=== PATIENT | female | born 1960 | race Caucasian/White ===

== ENCOUNTER 2016-11-03 18:17 | Inpatient (IN) ==
--- NOTE | 2016-11-03 18:32 | Emergency Department Note ---
Disposition Clinical Impression: Suicidal ideation, Acute anxiety, Depression, Marijuana abuse Disposition: Admitted As Inpatient Referrals: NO,PCP [Primary Care Provider] - General Adult HPI - General Chief complaint: ED Psychiatric Symptoms Stated complaint: SI Time Seen by Provider: 11/03/16 18:22 - History of Present Illness HPI Narrative: 55-year-old female history of anxiety depression reports emergency department complaining of a panic attack and feeling suicidal. She started having anxiety symptoms yesterday. The patient states she was recently told that she had an abnormal Alzheimer's type test and a final result has not been given to her. She also reports her primary care provider discontinued her normal benzodiazapine regimen. The patient states she has had suicidal thoughts. She has not harmed herself in any way. There is no history of intentional overdose. The patient has chronic COPD and shortness of breath with no new changes. There is no history of leg swelling or pain or syncope or coughing up blood no chest pain reported. No abdominal pain. There is no history of acute back pain or bowel or bladder dysfunction. No weakness or numbness in arms or legs no trouble walking talking hearing seeing or speaking. There is no history of cough or fever. There is no history of suicidality. - Related Data Previous Rx's Medication Instructions Recorded HydrOXYzine 50 mg PO BID 7 Days 06/04/15 Allergies Allergy/AdvReac Type Severity Reaction Status Date / Time chlordiazepoxide Allergy See Verified 11/03/16 20:06 [From Librium] Comments Penicillins AdvReac Nausea Verified 11/03/16 20:06 All systems ED: reviewed and negative except as stated. Past Medical History - Past Medical History Medical history: Reports: migraine Psychiatric history: Reports: anxiety, depression LABEL FOLDER history: Reports: no LABEL FOLDER history - Social History Smoking Status: Current every day smoker Smokeless Tobacco Status: No Alcohol use: Reports: none Drug use: Reports: marijuana Physical Exam - General Limitations: no limitations General appearance: alert, in no apparent distress - Head Head exam: atraumatic, normocephalic, normal inspection - Eye Eye exam: Present: normal appearance, PERRL, EOMI. Absent: scleral icterus, conjunctival injection, miosis, mydriasis - ENT ENT exam: normal exam, normal oropharynx, mucous membranes moist - Neck Neck exam: Present: normal inspection, full ROM, trachea midline. Absent: tenderness - Chest Chest inspection: Present: symmetric chest wall rise. Absent: tenderness - Respiratory Respiratory exam: Present: normal lung sounds bilaterally. Absent: respiratory distress, wheezes, accessory muscle use, prolonged expiratory phase - Cardiovascular Cardiovascular exam: Present: regular rate, normal rhythm, normal heart sounds - Abdominal Exam Abdominal exam: Present: soft, Non-Tender, normal bowel sounds. Absent: tenderness, distention, guarding, rebound, rigidity - Extremities Exam Extremities exam: Present: normal inspection, full ROM, normal capillary refill. Absent: tenderness, pedal edema, joint swelling, calf tenderness - Expanded Lower Extremity Exam Lower leg exam: Absent: Homans' sign Neurovascular/Tendon exam: Present: normal capillary refill. Absent: motor deficit, sensory deficit, tendon deficit, extremity cold to touch, pallor - Back Exam Back exam: Present: normal inspection, full ROM. Absent: tenderness, CVA tenderness (R), CVA tenderness (L), vertebral tenderness - Neurological Exam Neurological exam: Present: alert, oriented X3, CN II-XII intact. Absent: motor sensory deficit - Psychiatric Psychiatric exam: Present: normal affect, normal mood - Skin Skin exam: Present: warm, dry, intact, normal color. Absent: rash, cyanosis, diaphoresis, erythema, pallor, mottled Course Vital Signs Temperature 98.5 F 11/03/16 18:23 Pulse Rate 93 11/03/16 18:23 Respiratory Rate 18 11/03/16 18:23 Blood Pressure 127/87 11/03/16 18:23 O2 Sat by Pulse Oximetry 93 11/03/16 18:23 Temperature 98.5 F 11/03/16 18:23 Pulse Rate 93 11/03/16 18:31 Respiratory Rate 18 11/03/16 18:31 Blood Pressure 127/87 11/03/16 18:31 O2 Sat by Pulse Oximetry 95 11/03/16 18:31 Oxygen Delivery Oxygen Delivery Room Air Medical Decision Making - [facility] Narrative Medical decision making narrative: The patient describes a panic attack and anxiety with associated suicidal ideation. She appears to be medically stable. Her potassium is slightly low. Potassium supplements have an ordered by mouth. She was very anxious in the ED and was given Ativan. We have consulted the psychiatric service for evaluation. Psychiatry recommends admission, the patient has been suicidal, her family members are here including her and daughter, she has been actively talking about killing herself with them. They are highly concerned and have expressed their worries to the counselor. I feel the patient is at high risk for harming herself based on her history of psychiatric disease and recurrent statements regarding harming herself. The patient has been somewhat agitated in the ED she was given Ativan but remained agitated. Geodon was ordered. - Lab Data Lab results reviewed: Yes I reviewed the patient's lab results. Result diagrams: 11/03/16 18:57 11/03/16 18:57 Lab Results 11/03/16 11/03/16 11/03/16 Range/Units 18:57 18:57 19:33 WBC 10.3 (4.3-11.1) K/mcL RBC 4.86 (3.82-4.97) M/mcL Hgb 15.0 (11.5-15.4) g/dL Hct 44.9 (35.3-44.9) % MCV 92.4 (83.0-100.0) fL MCH 30.9 (28.0-33.3) pg MCHC 33.4 (31.6-35.5) g/dL RDW 12.8 (11.5-14.5) % Plt Count 296 (140-400) K/mcL MPV 11.4 (9.4-12.4) fL Immature Gran % 0.3 (0-4) % Seg Neutrophils % 53.9 % Lymphocytes % 32.1 % Monocytes % 10.0 % Eosinophils % 3.0 % Basophils % 0.7 % Neutrophils # 5.6 (1.6-8.9) K/mcL Lymphocytes # 3.3 (0.6-4.6) K/mcL Monocytes # 1.0 (0.0-1.3) K/mcL Eosinophils # 0.3 (0.0-0.6) K/mcL Basophils # 0.1 (0.0-0.2) K/mcL Immature Plt Fraction 8.9 H (1.1-6.1) % Sodium 138 (136-145) mEq/L Potassium 3.0 L (3.5-4.5) mEq/L Chloride 101 (98-109) mEq/L Carbon Dioxide 26 (19-29) mEq/L BUN 9 (7-20) mg/dL Creatinine 0.83 (0.57-1.11) mg/dL Est GFR ( Amer) > 60 (> 60) Est GFR (Non-Af Amer) > 60 (> 60) BUN/Creatinine Ratio 11 (6-26) Glucose 90 (70-99) mg/dL Calculated Osmolality 284 (280-300) Calcium 9.8 (8.6-10.8) mg/dL Urine Color Yellow (Yellow) Urine Clarity Cloudy A (Clear) Urine pH 5.5 (5.0-8.0) pH Units Ur Specific [place] 1.024 (1.010-1.025) Urine Protein Trace (Neg-Trace) mg/dL Urine Glucose (UA) Normal (Normal) mg/dL Urine Ketones Negative (Negative) mg/dL Urine Blood Negative (Negative) Urine Nitrite Negative (Negative) Urine Bilirubin Negative (Negative) Urine Urobilinogen Normal (Normal) mg/dL Ur Leukocyte Esterase Negative (Negative) Urine Microscopic RBC 0-3 (0-3) per hpf Urine Microscopic WBC 3-5 H (0-3) per hpf Ur Squamous Epith Cells Many H (None-Few) per lpf Urine Bacteria None Seen (None-Few) per hpf Hyaline Casts None Seen (None-Few) per lpf Salicylates < 5.0 L (15-30) mg/dL Urine Opiates Screen (Dbjjgv=277) ng/mL Acetaminophen 1.0 L (10-30) mcg/mL Ur Barbiturates Screen (Btodcm=609) ng/mL Ur Phencyclidine Scrn (Cutoff=25) ng/mL Ur Amphetamines Screen (Wxegle=3637) ng/mL U Benzodiazepines Scrn (Qkskeh=161) ng/mL Urine Cocaine Screen (Cutoff= 300) ng/mL U Marijuana (THC) Screen (Cutoff = 50) ng/mL Ethyl Alcohol < 10 (0-10) mg/dL 11/03/16 Range/Units 19:33 WBC (4.3-11.1) K/mcL RBC (3.82-4.97) M/mcL Hgb (11.5-15.4) g/dL Hct (35.3-44.9) % MCV (83.0-100.0) fL MCH (28.0-33.3) pg MCHC (31.6-35.5) g/dL RDW (11.5-14.5) % Plt Count (140-400) K/mcL MPV (9.4-12.4) fL Immature Gran % (0-4) % Seg Neutrophils % % Lymphocytes % % Monocytes % % Eosinophils % % Basophils % % Neutrophils # (1.6-8.9) K/mcL Lymphocytes # (0.6-4.6) K/mcL Monocytes # (0.0-1.3) K/mcL Eosinophils # (0.0-0.6) K/mcL Basophils # (0.0-0.2) K/mcL Immature Plt Fraction (1.1-6.1) % Sodium (136-145) mEq/L Potassium (3.5-4.5) mEq/L Chloride (98-109) mEq/L Carbon Dioxide (19-29) mEq/L BUN (7-20) mg/dL Creatinine (0.57-1.11) mg/dL Est GFR ( Amer) (> 60) Est GFR (Non-Af Amer) (> 60) BUN/Creatinine Ratio (6-26) Glucose (70-99) mg/dL Calculated Osmolality (280-300) Calcium (8.6-10.8) mg/dL Urine Color (Yellow) Urine Clarity (Clear) Urine pH (5.0-8.0) pH Units Ur Specific [place] (1.010-1.025) Urine Protein (Neg-Trace) mg/dL Urine Glucose (UA) (Normal) mg/dL Urine Ketones (Negative) mg/dL Urine Blood (Negative) Urine Nitrite (Negative) Urine Bilirubin (Negative) Urine Urobilinogen (Normal) mg/dL Ur Leukocyte Esterase (Negative) Urine Microscopic RBC (0-3) per hpf Urine Microscopic WBC (0-3) per hpf Ur Squamous Epith Cells (None-Few) per lpf Urine Bacteria (None-Few) per hpf Hyaline Casts (None-Few) per lpf Salicylates (15-30) mg/dL Urine Opiates Screen Positive H (Yiybyh=124) ng/mL Acetaminophen (10-30) mcg/mL Ur Barbiturates Screen Negative (Wdifma=776) ng/mL Ur Phencyclidine Scrn Negative (Cutoff=25) ng/mL Ur Amphetamines Screen Negative (Dpgnsv=9048) ng/mL U Benzodiazepines Scrn Positive H (Ftcuvq=737) ng/mL Urine Cocaine Screen Negative (Cutoff= 300) ng/mL U Marijuana (THC) Screen Positive H (Cutoff = 50) ng/mL Ethyl Alcohol (0-10) mg/dL
[2016-11-03 19:06] LABS: Basophils # 0.1 K/mcL (0.0-0.2); Basophils % 0.7 %; Eosinophils # 0.3 K/mcL (0.0-0.6); Hematocrit 44.9 % (35.3-44.9); Immature Granulocytes % 0.3 % (0-4); Immature Platelets 8.9 % (1.1-6.1); Lymphocytes # 3.3 K/mcL (0.6-4.6); Lymphocytes % 32.1 %; Mean Corpuscular HGB Conc 33.4 g/dL (31.6-35.5); Mean Corpuscular Hemoglobin 30.9 pg (28.0-33.3); Mean Corpuscular Volume 92.4 fL (83.0-100.0); Mean Platelet Volume 11.4 fL (9.4-12.4); Neutrophils # 5.6 K/mcL (1.6-8.9); Platelet Count 296 K/mcL (140-400); Red Blood Count 4.86 M/mcL (3.82-4.97); Red Cell Distribution Width 12.8 % (11.5-14.5); Segmented Neutrophils % 53.9 %
[2016-11-03 19:20] LABS: BUN/Creatinine Ratio 11 (6-26); Blood Urea Nitrogen 9 mg/dL (7-20); Calcium 9.8 mg/dL (8.6-10.8); Carbon Dioxide 26 mEq/L (19-29); Chloride 101 mEq/L (98-109); Glucose 90 mg/dL (70-99); Osmolality,Calculated 284 (280-300); Sodium 138 mEq/L (136-145); eGFR For African Americans > 60 (> 60); eGFR For Non-African Americans > 60 (> 60)
[2016-11-03 19:30] LABS: Ethanol < 10 mg/dL (0-10); Salicylate < 5.0 mg/dL (15-30)
[2016-11-03] MEDS ORDERED: *HR* LORazepam 1 MG TABLET PO ONE ×2 (19:39→20:38)
[2016-11-03 19:43] LABS: Bilirubin,Urine Negative (Negative); Blood,Urine Negative (Negative); Clarity,Urine Cloudy (Clear); Color,Urine Yellow (Yellow); Glucose,Urine (UA) Normal (Normal); Ketones,Urine Negative (Negative); Leukocyte Esterase,Urine Negative (Negative); Nitrite,Urine Negative (Negative); PH,Urine 5.5 pH Units (5.0-8.0); Protein,Urine Trace mg/dL (Neg-Trace); Specific Gravity,Urine 1.024 (1.010-1.025); Urobilinogen,Urine Normal (Normal)
[2016-11-03 19:46] LABS: Bacteria,Urine None Seen per hpf (None-Few); Hyaline Casts,Urine None Seen per lpf (None-Few); RBC,Urine 0-3 per hpf (0-3); Squamous Epithelial Cell,Urine Many per lpf (None-Few)
[2016-11-03 19:49] LABS: Amphetamine Screen,Urine Negative ng/mL (Cutoff=1000); Barbiturate Screen,Urine Negative ng/mL (Cutoff=200); Benzodiazepines Screen,Urine Positive ng/mL (Cutoff=200); Cannabinoid Screen,Urine Positive ng/mL (Cutoff = 50); Cocaine Screen,Urine Negative ng/mL (Cutoff= 300); Opiate Screen,Urine Positive ng/mL (Cutoff=300); Phencyclidine Screen,Urine Negative ng/mL (Cutoff=25)
[2016-11-03] MEDS ORDERED: Ziprasidone 20 MG CAPSULE PO ONE (22:11)
[2016-11-03] MEDS ORDERED: *HR* LORazepam 1 MG TABLET PO PRN (23:54)
[2016-11-03] MEDS ORDERED: Mag Hydrox/Al Hydrox/Simeth 30 ML UDC PO PRN (23:54)
[2016-11-03] MEDS ORDERED: MOM Conc 10 ML UD.LIQ PO PRN (23:54)
[2016-11-03] MEDS ORDERED: Ibuprofen 400 MG TABLET PO PRN (23:54)
[2016-11-03] MEDS ORDERED: *HR* LORazepam 2 MG/ML VIAL IM PRN (23:54)
[2016-11-03] MEDS ORDERED: Haloperidol Lactate 5 MG/ML VIAL IM PRN (23:54)
[2016-11-04] MEDS: hydrOXYzine pamoate 25 MG CAPSULE PO PRN ×2 (00:31→21:41)
[2016-11-04] MEDS: Nicotine 21 MG PATCH.TD24 TD SCH ×3 (00:31→18:46)
[2016-11-04] MEDS: traZODone 50 MG TABLET PO PRN ×2 (00:31→21:41)
--- NOTE | 2016-11-04 11:33 | Psychiatry History & Physical ---
Date of Encounter: 11/04/16 Time of Encounter: 11:28 History of Present Illness Patient Stated Chief Complaint: Suicidal ideation Medicare Admission Attestation: For traditional Medicare patients the provided hospital inpatient services are reasonable and necessary and in the case of services not specified as inpatient -only under 42 CFR 419.22 (n), that they are appropriately provided as inpatient services in accordance 42 CFR 412.3. For Critical Access Hospital the patient may reasonably be expected to be discharged or transferred to a hospital within 96 hours after admission to the Critical Access Hospital. Admitted From: Emergency Dept History of Present Illness: Ms. Clark is a 55 year old female admitted to the emergency department for evaluation of suicidal ideation. Patient stated that she was treated by a nurse practitioner for panic attacks, she was on Paxil and Klonopin and recently she was advised to taper off the Klonopin due to side effects on her memory. Patient has a family history of Alzheimer disease. 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 Patient is a poor historian and there are no records of psychiatric treatment to review at this time. UDS was positive for THC and benzodiazepine. Patient described anxiety attacks or panic attacks that happens about once a week and may last up to 30 minutes at a time. She smokes half a pack of cigarettes a day and consuming large amounts of caffeine for Mountain Dew in addition to using marijuana on and off. Patient was advised that her treatment plan will involve medication changes to address the above and minimize cognitive side effects of medication. Past Med Surg Social Fam HX - Past Medical History Medical history: COPD, migraine, other - Past Psychiatric History Psychiatric history: Reports: no psych history - Past Surgical History Surgical History: orthopedic, other - Social History Smoking Status: Current every day smoker Smokeless Tobacco Status: No Alcohol use: none Drug use: marijuana Medications & Allergies Aclidinium Blodgett [Tudorza Pressair] 1 puff IH BID 11/03/16 [History] Albuterol Sulfate [Albuterol Inhaler] 2 puff IH Q4-6H PRN 11/03/16 [History] Cetirizine HCl [Zyrtec] 10 mg PO DAILY 11/03/16 [History] Gabapentin [Neurontin] 600 mg PO TID 11/03/16 [History] Melatonin 10 mg PO HS 11/03/16 [History] Meloxicam [Meloxicam] 15 mg PO DAILY 11/03/16 [History] Montelukast [Singulair] 10 mg PO DAILY 11/03/16 [History] Ondansetron HCl [Zofran] 4 - 8 mg PO BID PRN 11/03/16 [History] Paroxetine HCl [Paxil] 40 mg PO DAILY 11/03/16 [History] Ranitidine HCl [Zantac] 300 mg PO DAILY 11/03/16 [History] Tizanidine HCl 4 mg PO Q8H 11/03/16 [History] clonazePAM [Klonopin] 0.5 mg PO TID PRN 11/03/16 [History] Allergies chlordiazepoxide [From Librium] Allergy (Verified 11/03/16 20:06) See Comments "body freezes up" Penicillins Adverse Reaction (Verified 11/03/16 20:06) Nausea Review of Systems Psychiatric: Reports: anxiety, suicidal ideation, panic attacks Mental Status Exam Patient orientation: Yes Person, Yes Time, Yes Place, Yes Other (looks much older than stated age) Level of alertness: Alert, Sedated Patient appearance: Appropriate, Unkempt, Disheveled Behavior: cooperative, anxious, guarded, distractible Psychomotor activity: Slowed Eye contact: Minimal Contact Mood description: Depressed, Anxious Affect description: congruent with mood, constricted, dysphoric Speech pattern: Normal rate, Normal rhythm, Normal tone, Limited, Impoverished Speech volume: Normal Thought process: Circumstantial, Tangential, Slowed Thinking Thought content: Yes Suicidal ideation, No Homicidal ideation, No Overt delusions Perceptual disturbances: No Auditory hallucinations, No Visual hallucinations Attention span: Capable of Focused Attention Memory description: Recent Impaired, Remote Impaired Patient reliability: Not Reliable Historian Intelligence estimate: Average Judgment: Limited Insight: Partial Results - Vital Signs Vital signs: Temp Pulse Resp BP Pulse Ox 97.8 F 90 18 118/74 95 11/03/16 23:40 11/03/16 23:40 11/03/16 23:40 11/03/16 23:40 11/03/16 18:31 - Labs Labs: Laboratory Last Values WBC 10.3 K/mcL (4.3-11.1) 11/03/16 18:57 RBC 4.86 M/mcL (3.82-4.97) 11/03/16 18:57 Hgb 15.0 g/dL (11.5-15.4) 11/03/16 18:57 Hct 44.9 % (35.3-44.9) 11/03/16 18:57 MCV 92.4 fL (83.0-100.0) 11/03/16 18:57 MCH 30.9 pg (28.0-33.3) 11/03/16 18:57 MCHC 33.4 g/dL (31.6-35.5) 11/03/16 18:57 RDW 12.8 % (11.5-14.5) 11/03/16 18:57 Plt Count 296 K/mcL (140-400) 11/03/16 18:57 MPV 11.4 fL (9.4-12.4) 11/03/16 18:57 Immature Gran % 0.3 % (0-4) 11/03/16 18:57 Seg Neutrophils % 53.9 % 11/03/16 18:57 Lymphocytes % 32.1 % 11/03/16 18:57 Monocytes % 10.0 % 11/03/16 18:57 Eosinophils % 3.0 % 11/03/16 18:57 Basophils % 0.7 % 11/03/16 18:57 Neutrophils # 5.6 K/mcL (1.6-8.9) 11/03/16 18:57 Lymphocytes # 3.3 K/mcL (0.6-4.6) 11/03/16 18:57 Monocytes # 1.0 K/mcL (0.0-1.3) 11/03/16 18:57 Eosinophils # 0.3 K/mcL (0.0-0.6) 11/03/16 18:57 Basophils # 0.1 K/mcL (0.0-0.2) 11/03/16 18:57 Immature Plt Fraction 8.9 % (1.1-6.1) H 11/03/16 18:57 Sodium 138 mEq/L (136-145) 11/03/16 18:57 Potassium 3.0 mEq/L (3.5-4.5) L 11/03/16 18:57 Chloride 101 mEq/L (98-109) 11/03/16 18:57 Carbon Dioxide 26 mEq/L (19-29) 11/03/16 18:57 BUN 9 mg/dL (7-20) 11/03/16 18:57 Creatinine 0.83 mg/dL (0.57-1.11) 11/03/16 18:57 Est GFR ( Amer) > 60 (> 60) 11/03/16 18:57 Est GFR (Non-Af Amer) > 60 (> 60) 11/03/16 18:57 BUN/Creatinine Ratio 11 (6-26) 11/03/16 18:57 Glucose 90 mg/dL (70-99) 11/03/16 18:57 Calculated Osmolality 284 (280-300) 11/03/16 18:57 Calcium 9.8 mg/dL (8.6-10.8) 11/03/16 18:57 Urine Color Yellow (Yellow) 11/03/16 19:33 Urine Clarity Cloudy (Clear) A 11/03/16 19:33 Urine pH 5.5 pH Units (5.0-8.0) 11/03/16 19:33 Ur Specific [place] 1.024 (1.010-1.025) 11/03/16 19:33 Urine Protein Trace mg/dL (Neg-Trace) 11/03/16 19:33 Urine Glucose (UA) Normal mg/dL (Normal) 11/03/16 19:33 Urine Ketones Negative mg/dL (Negative) 11/03/16 19:33 Urine Blood Negative (Negative) 11/03/16 19:33 Urine Nitrite Negative (Negative) 11/03/16 19:33 Urine Bilirubin Negative (Negative) 11/03/16 19:33 Urine Urobilinogen Normal mg/dL (Normal) 11/03/16 19:33 Ur Leukocyte Esterase Negative (Negative) 11/03/16 19:33 Urine Microscopic RBC 0-3 per hpf (0-3) 11/03/16 19:33 Urine Microscopic WBC 3-5 per hpf (0-3) H 11/03/16 19:33 Ur Squamous Epith Cells Many per lpf (None-Few) H 11/03/16 19:33 Urine Bacteria None Seen per hpf (None-Few) 11/03/16 19:33 Hyaline Casts None Seen per lpf (None-Few) 11/03/16 19:33 Salicylates < 5.0 mg/dL (15-30) L 11/03/16 18:57 Urine Opiates Screen Positive ng/mL (Klalxm=335) H 11/03/16 19:33 Acetaminophen 1.0 mcg/mL (10-30) L 11/03/16 18:57 Ur Barbiturates Screen Negative ng/mL (Uifeyv=092) 11/03/16 19:33 Ur Phencyclidine Scrn Negative ng/mL (Cutoff=25) 11/03/16 19:33 Ur Amphetamines Screen Negative ng/mL (Izpghv=5491) 11/03/16 19:33 U Benzodiazepines Scrn Positive ng/mL (Axnrxy=161) H 11/03/16 19:33 Urine Cocaine Screen Negative ng/mL (Cutoff= 300) 11/03/16 19:33 U Marijuana (THC) Screen Positive ng/mL (Cutoff = 50) H 11/03/16 19:33 Ethyl Alcohol < 10 mg/dL (0-10) 11/03/16 18:57 Assessment and Plan (1) Anxiety disorder, unspecified Current visit: Yes Status: Acute Plan: Admit inpatient for safety and stabilization, Close observation, Suicide Precautions per unit protocol, Encourage participation in unit milieu, Group Therapy, Monitor sleep, Monitor appetite Additional Plan: Will add BuSpar 15 mg twice a day, with cut down Klonopin to 0.5 mg 3 times a day when necessary. Risks, benefits, side effects, alternatives discussed w/pt: Yes Patient agreeable to treatment: Yes Qualifiers: Anxiety disorder type: panic disorder without agoraphobia Qualified Code(s) : F41.0 - Panic disorder [episodic paroxysmal anxiety] without agoraphobia
[2016-11-04] MEDS: clonazePAM 0.5 MG TABLET PO PRN (18:46)
[2016-11-05] MEDS: clonazePAM 0.5 MG TABLET PO PRN ×3 (00:32→21:26)
[2016-11-05] MEDS: Nicotine 21 MG PATCH.TD24 TD SCH (08:34)
--- NOTE | 2016-11-05 15:42 | Psychiatry Progress Note ---
Date of Encounter: 11/05/16 Time of Encounter: 15:15 Subjective Interval history: Patient seen for follow-up. She reports having muscle spasms in her legs from and had this side effect in the past but she did not tell me. Otherwise mortgage is improved she is not anxious and she is socializing with other patients and denies suicidal ideation. Her discharge plans are ongoing. Review of Systems Psychiatric: Reports: anxiety, suicidal ideation, panic attacks Objective: Exam Patient orientation: Yes Person, Yes Time, Yes Place Level of alertness: Alert Patient appearance: Appropriate, Unkempt Behavior: calm, cooperative Psychomotor activity: Normal Eye contact: Maintains Eye Contact Mood description: Euthymic/stable Affect description: congruent with mood, full range Speech pattern: Normal rate, Normal rhythm, Normal tone Speech volume: Normal Thought process: Linear, Goal Oriented Thought content: No Suicidal ideation, No Homicidal ideation, No Overt delusions Perceptual disturbances: No Auditory hallucinations, No Visual hallucinations Judgment: Fair Insight: Partial Results - Vital Signs Vital Signs: Temp Pulse Resp BP Pulse Ox 97.3 F L 78 18 130/85 95 11/05/16 09:00 11/05/16 09:00 11/05/16 09:00 11/05/16 09:00 11/03/16 18:31 Assessment and Plan (1) Anxiety disorder, unspecified Current visit: Yes Status: Acute Plan: Continue hospitalization, Close observation, Suicide Precautions per unit protocol, Encourage participation in unit milieu, Group Therapy, Monitor sleep, Monitor appetite Additional Plan: We discontinue BuSpar due to the side effects. Patient reported muscle spasm in her legs. She had a history of treatment with past. Risks, benefits, side effects, alternatives discussed w/pt: Yes Patient agreeable to treatment: Yes Qualifiers: Anxiety disorder type: panic disorder without agoraphobia Qualified Code(s) : F41.0 - Panic disorder [episodic paroxysmal anxiety] without agoraphobia Consult Discharge Plan - Plan Referrals: Boris Otto [Outside] (The above appointment is with When you come to your first appointment, you will have an orientation to the agency and you will meet with a counselor. Please bring the following with you to your first visit to the clinic: 1) proof of household income (two consecutive pay stubs, social security award letter, bank statement, statement letter from [facility] , child support statement, IRS 1040 or W2 form, or a statement from the person who financially supports you stating they help provide for your basic needs), 2 ) proof of residency (drivers license, a piece of mail showing your address, a statement from person you live with verifying you live at their address), 3) your social security card, 4) photo ID, 5) your insurance card (if you have commercial insurance you must call to obtain a prior authorization number before you arrive to your first appointment) and 6) if you do not have insurance but have applied for Medicaid, please bring verification you have applied. This is the first available appointment. You may contact the office regularly to check for cancellations that may allow you to be seen sooner. ) Ion Randall, PAC [Physician Grain Blender] - 11/16/16 1:00 pm (The above appointment is with Naty Cast, associate of Ion Randall at [facility]. This appointment is to establish you with a primary care provider. Your needs for psychiatric medication and/or Vivitrol will be assessed for and treated as well. Please arrive 15 minutes early to complete paperwork. Please bring your insurance card, photo ID and list of current medications to your first appointment. This is the first available appointment. You may contact the office regularly to check for cancellations that may allow you to be seen sooner. )
[2016-11-05] MEDS ORDERED: Ondansetron ODT 4 MG TAB.RAPDIS PO PRN (18:44)
[2016-11-05] MEDS: tiZANidine 4 MG TABLET PO SCH (19:37)
[2016-11-05] MEDS ORDERED: Melatonin 3 MG TABLET PO SCH (21:00)
[2016-11-05] MEDS: Gabapentin 300 MG CAPSULE PO SCH (21:26)
[2016-11-05] MEDS: traZODone 50 MG TABLET PO PRN (21:26)
[2016-11-05] MEDS: (Aclidinium Bromide [Tudorza Pressair] 1 PUFF) IH SCH (23:51)
[2016-11-06] MEDS: tiZANidine 4 MG TABLET PO SCH ×2 (04:20→11:35)
[2016-11-06] MEDS: Gabapentin 300 MG CAPSULE PO SCH ×2 (08:51→14:48)
[2016-11-06] MEDS: Nicotine 21 MG PATCH.TD24 TD SCH (08:53)
[2016-11-06] MEDS ORDERED: Famotidine 20 MG TABLET PO SCH (09:00)
[2016-11-06] MEDS ORDERED: Loratadine 10 MG TABLET PO SCH (09:00)
[2016-11-06 09:28] VITALS: BP 126/84
[2016-11-06] MEDS: (Aclidinium Bromide [Tudorza Pressair] 1 PUFF) IH SCH (10:19)
--- NOTE | 2016-11-06 14:40 | Discharge Summary ---
Date of Encounter: 11/06/16 Time of Encounter: 14:36 Diagnosis - Discharge Diagnosis (1) Anxiety disorder, unspecified Status: Acute Qualifiers: Anxiety disorder type: panic disorder without agoraphobia Qualified Code(s) : F41.0 - Panic disorder [episodic paroxysmal anxiety] without agoraphobia Medications - Discharge Medications Aclidinium [place] [Tudorza Pressair] 1 puff IH BID 11/03/16 [History] Albuterol Sulfate [Albuterol Inhaler] 2 puff IH Q4-6H PRN 11/03/16 [History] Cetirizine HCl [Zyrtec] 10 mg PO DAILY 11/03/16 [History] Gabapentin [Neurontin] 600 mg PO TID 11/03/16 [History] Melatonin 10 mg PO HS 11/03/16 [History] Meloxicam 15 mg PO DAILY 11/03/16 [History] Montelukast [Singulair] 10 mg PO DAILY 11/03/16 [History] Ondansetron HCl [Zofran] 4 - 8 mg PO BID PRN 11/03/16 [History] Paroxetine HCl [Paxil] 40 mg PO DAILY 11/03/16 [History] Ranitidine HCl [Zantac] 300 mg PO DAILY 11/03/16 [History] Tizanidine HCl 4 mg PO Q8H 11/03/16 [History] clonazePAM [Klonopin] 0.5 mg PO TID PRN 11/03/16 [History] Patient Taking Own Medication 0 each IH BID each 11/06/16 [Rx] Allergies chlordiazepoxide [From Librium] Allergy (Verified 11/03/16 20:06) See Comments "body freezes up" Penicillins Adverse Reaction (Verified 11/03/16 20:06) Nausea Provider Date of admission: 11/03/16 22:37 Primary care physician: PCP NO Discharging clinician: Graham Cooper Assessment and Plan - Patient/Caregiver Discharge Instructions Activity: resume usual activities as tolerated Diet: regular diet - Follow up Plan Follow up with: Boris Otto [Outside] - 11/23/16 8:30 am (The above appointment is with Liya Walters. When you come to your first appointment, you will have an orientation to the agency and you will meet with a counselor. Please bring the following with you to your first visit to the clinic: 1) proof of household income (two consecutive pay stubs, social security award letter, bank statement, statement letter from [facility], child support statement, IRS 1040 or W2 form, or a statement from the person who financially supports you stating they help provide for your basic needs), 2) proof of residency (drivers license , a piece of mail showing your address, a statement from person you live with verifying you live at their address), 3) your social security card, 4) photo ID , 5) your insurance card (if you have commercial insurance you must call to obtain a prior authorization number before you arrive to your first appointment ) and 6) if you do not have insurance but have applied for Medicaid, please bring verification you have applied. This is the first available appointment. You may contact the office regularly to check for cancellations that may allow you to be seen sooner. ) Ion Randall, PAC [Physician Production Consultant] - 11/16/16 1:00 pm (The above appointment is with Naty Cast, associate of Ion Randall at [facility]. This appointment is to establish you with a primary care provider. Your needs for psychiatric medication and/or Vivitrol will be assessed for and treated as well. Please arrive 15 minutes early to complete paperwork. Please bring your insurance card, photo ID and list of current medications to your first appointment. This is the first available appointment. You may contact the office regularly to check for cancellations that may allow you to be seen sooner. ) Functional capacity at discharge: independent ambulation Overall status at discharge: Stable Disposition: Home, Self-Care Hospital Course Hospital course: Ms. Clark is a 55 year old female admitted for depression and suicidal ideation. For details of the admission please see H&P On the units patient was given BuSpar, she experienced side effects and it was discontinued. Klonopin dose was reduced to 0.5 mg as needed 3 times a day. Patient participated in groups and activities. She reported improved sleep and less anxiety. She denied any suicidal ideation or hopelessness. She was educated about her medication and advised on benzodiazepine abuse and custodial side effects and she was receptive to the information. On discharge she was medically stable and her discharge plans were completed by the licensed social worker. - Time Spent with Patient Total time spent providing and/or coordinating discharge services: Greater than 30 minutes Quality - Multiple Antipsychotics Patient discharged on 2 or more antipsychotic medications: No Procedures - Procedures Procedures: Medication Management, Crisis Stabilization, Supportive Therapy, Group Therapy, Psychoeducational Therapy Mental Status Exam - Mental Status Exam Patient orientation: Yes Person, Yes Time, Yes Place Level of alertness: Alert Patient appearance: Appropriate, Well Groomed Behavior: calm, cooperative Psychomotor activity: Normal Eye contact: Maintains Eye Contact Mood description: Euthymic/stable Affect description: congruent with mood, full range Speech pattern: Normal rate, Normal rhythm, Normal tone Speech Volume: Normal Thought process: Linear, Goal Oriented Thought Content: No Suicidal ideation, No Homicidal ideation, No Overt delusions Perceptual Disturbances: No Auditory hallucinations, No Visual hallucinations Judgment: Limited Insight: Partial
== END 2016-11-06 16:10 | disposition home or self-care (01) | DRG 756 ==
LOC: EMEROO 18:17 → 1ANU 22:37
PROVIDERS: ADMIT Psychiatry & Neurology Psychiatry; ATTEND Psychiatry & Neurology Psychiatry

== ENCOUNTER 2017-03-02 13:02 | Observation (INO) ==
[2017-03-02] MEDS ORDERED: Pantoprazole 40 MG VIAL IVP ONE (13:05)
--- NOTE | 2017-03-02 13:10 | Emergency Department Note ---
Disposition Clinical Impression: Duodenitis Nausea & vomiting Qualifiers: Vomiting type: unspecified Vomiting Intractability: unspecified Qualified Code( s): R11.2 - Nausea with vomiting, unspecified GI bleed Qualifiers: GI bleed type/associated pathology: unspecified gastrointestinal hemorrhage type Qualified Code(s): K92.2 - Gastrointestinal hemorrhage, unspecified Disposition: Admitted As Inpatient Condition: Fair Referrals: Naty Cast [Primary Care Provider] - Forms: ED Satisfaction Letter Time of Disposition: 16:09 GI Bleed HPI - General Chief complaint: ED GI Bleed Stated complaint: GI bleed Time Seen by Provider: 03/02/17 13:05 Source: patient, EMS Mode of arrival: EMS Limitations: no limitations Nursing Notes Reviewed: Yes Vital Signs Reviewed: Yes - History of Present Illness HPI Narrative: 56-year-old has had about a week's worth of abdominal pain was seen at the urgent care there concern was that she may be having a vomit with blood in it. They center for follow-up she saw her family doctor today who did a rectal who found blood in her stool and she's had worsening abdominal pain. Pt Subjective Complaint: other (Guaiac positive stool at her doctor's office with abdominal pain) Onset (ago): day(s) (7) Consistency: constant Severity: moderate Improves with: nothing Worsens with: nothing Context: unknown - Related Data Home Medications Medication Instructions Recorded Confirmed Aclidinium [place] [Tudorza 1 puff IH BID 11/03/16 11/03/16 Pressair] Albuterol Sulfate [Albuterol 2 puff IH Q4-6H PRN 11/03/16 11/03/16 Inhaler] Cetirizine HCl [Zyrtec] 10 mg PO DAILY 11/03/16 11/03/16 Gabapentin [Neurontin] 600 mg PO TID 11/03/16 11/03/16 Melatonin 10 mg PO HS 11/03/16 11/03/16 Meloxicam 15 mg PO DAILY 11/03/16 11/03/16 Montelukast [Singulair] 10 mg PO DAILY 11/03/16 11/03/16 Ondansetron HCl [Zofran] 4 - 8 mg PO BID PRN 11/03/16 11/03/16 Paroxetine HCl [Paxil] 40 mg PO DAILY 11/03/16 11/03/16 Ranitidine HCl [Zantac] 300 mg PO DAILY 11/03/16 11/03/16 Tizanidine HCl 4 mg PO Q8H 11/03/16 11/03/16 clonazePAM [Klonopin] 0.5 mg PO TID PRN 11/03/16 11/03/16 Previous Rx's Medication Instructions Recorded Patient Taking Own Medication 0 each IH BID each 11/06/16 Allergies Allergy/AdvReac Type Severity Reaction Status Date / Time chlordiazepoxide Allergy See Verified 11/03/16 20:06 [From Librium] Comments Penicillins AdvReac Nausea Verified 11/03/16 20:06 All systems ED: reviewed and negative except as stated. Constitutional: Denies: fever, chills, weakness, weight change Eyes: Denies: eye pain, eye discharge, vision change ENT ED: Denies: ear pain, throat pain, dental pain, hearing loss, epistaxis, congestion, dysphagia Cardiovascular: Denies: chest pain, palpitations, dyspnea on exertion, edema, syncope Respiratory: Denies: cough, dyspnea, wheezes, hemoptysis, stridor Gastrointestinal: Reports: abdominal pain, nausea, vomiting, diarrhea. Denies: constipation, hematemesis, melena, hematochezia Genitourinary: Denies: dysuria, frequency, hematuria, discharge Musculoskeletal: Denies: back pain, neck pain, arthralgia, myalgia Integumentary: Denies: rash, abrasion, lesions Neurological: Denies: headache, weakness, numbness, paresthesias, confusion, abnormal gait, vertigo Psychiatric: Denies: anxiety, depression, suicidal thoughts, homicidal thoughts , auditory hallucinations, visual hallucinations Endocrine: Denies: fatigue Hematological/Lymphatic: Denies: easy bleeding, easy bruising Allergic/Immunologic: Denies: facial swelling, urticaria Past Medical History - Past Medical History Medical history: Reports: COPD, migraine, other Surgical history: Reports: orthopedic, other Psychiatric history: Reports: no psych history 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: 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: no 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 - Social History Smoking Status: Current every day smoker Smokeless Tobacco Status: No Alcohol use: Reports: none Drug use: Reports: marijuana Physical Exam - General Limitations: no limitations General appearance: alert, in no apparent distress - Head Head exam: atraumatic, normocephalic, normal inspection - Eye Eye exam: Present: normal appearance, PERRL, EOMI - ENT ENT exam: normal exam - Neck Neck exam: Present: normal inspection, full ROM, trachea midline - Chest Chest inspection: Present: normal inspection, symmetric chest wall rise - Respiratory Respiratory exam: Present: normal lung sounds bilaterally - Cardiovascular Cardiovascular exam: Present: regular rate, normal rhythm, normal heart sounds - Abdominal Exam Abdominal exam: Present: soft, tenderness. Absent: guarding, rebound Abdominal tenderness: Present: epigastrium - Extremities Exam Extremities exam: Present: normal inspection, full ROM. Absent: tenderness, pedal edema - Expanded Lower Extremity Exam Gait: observed and normal - Back Exam Back exam: Present: normal inspection, full ROM. Absent: tenderness - Neurological Exam Neurological exam: Present: alert, oriented X3 - Psychiatric Psychiatric exam: Present: normal affect, normal mood - Skin Skin exam: Present: warm, dry, intact, normal color Course - Reevaluation(s) Reevaluation #1: 56-year-old with nausea vomiting not able to keep anything down for several days had some blood in her stool on guaiac. Hemoglobin is stable however white count elevated at 17 CT shows evidence of duodenitis. Time: 16:07 - Consultations Consultation #1: Discussed with Time: 16:13 Vital Signs Temperature 98.2 F 03/02/17 13:03 Pulse Rate 57 03/02/17 13:03 Respiratory Rate 18 03/02/17 13:03 Blood Pressure 152/92 03/02/17 13:03 O2 Sat by Pulse Oximetry 94 03/02/17 13:03 Temperature 98.2 F 03/02/17 13:03 Pulse Rate 57 03/02/17 13:03 Respiratory Rate 18 03/02/17 13:03 Blood Pressure 152/92 03/02/17 13:03 O2 Sat by Pulse Oximetry 94 03/02/17 13:03 Oxygen Delivery Oxygen Delivery Room Air GI Bleed - Lab Data Lab results reviewed: Yes I reviewed the patient's lab results. Result diagrams: 03/02/17 13:20 03/02/17 13:20 Lab Results 03/02/17 03/02/17 03/02/17 Range/Units 13:20 13:20 13:20 WBC 17.0 H (4.3-11.1) K/mcL RBC 4.54 (3.82-4.97) M/mcL Hgb 14.5 (11.5-15.4) g/dL Hct 42.2 (35.3-44.9) % MCV 93.0 (83.0-100.0) fL MCH 31.9 (28.0-33.3) pg MCHC 34.4 (31.6-35.5) g/dL RDW 13.2 (11.5-14.5) % Plt Count 357 (140-400) K/mcL MPV 10.7 (9.4-12.4) fL Immature Gran % 0.5 (0-4) % Seg Neutrophils % 75.3 % Lymphocytes % 13.7 % Monocytes % 7.6 % Eosinophils % 2.6 % Basophils % 0.3 % Neutrophils # 12.8 H (1.6-8.9) K/mcL Lymphocytes # 2.3 (0.6-4.6) K/mcL Monocytes # 1.3 (0.0-1.3) K/mcL Eosinophils # 0.4 (0.0-0.6) K/mcL Basophils # 0.1 (0.0-0.2) K/mcL PT 11.7 (9.4-12.1) Seconds INR 1.1 APTT 30.1 (26.0-36.0) Seconds Sodium 140 (136-145) mEq/L Potassium 3.1 L (3.5-4.5) mEq/L Chloride 99 (98-109) mEq/L Carbon Dioxide 31 H (19-29) mEq/L BUN 7 (7-20) mg/dL Creatinine 0.79 (0.57-1.11) mg/dL Est GFR ( Amer) > 60 (> 60) Est GFR (Non-Af Amer) > 60 (> 60) BUN/Creatinine Ratio 9 (6-26) Glucose 112 H (70-99) mg/dL Calculated Osmolality 289 (280-300) Lactic Acid (0.5-2.2) mmol/L Calcium 9.9 (8.6-10.8) mg/dL Troponin I (0-0.03) ng/mL Blood Type Antibody Screen 03/02/17 03/02/17 03/02/17 Range/Units 13:20 13:20 13:20 WBC (4.3-11.1) K/mcL RBC (3.82-4.97) M/mcL Hgb (11.5-15.4) g/dL Hct (35.3-44.9) % MCV (83.0-100.0) fL MCH (28.0-33.3) pg MCHC (31.6-35.5) g/dL RDW (11.5-14.5) % Plt Count (140-400) K/mcL MPV (9.4-12.4) fL Immature Gran % (0-4) % Seg Neutrophils % % Lymphocytes % % Monocytes % % Eosinophils % % Basophils % % Neutrophils # (1.6-8.9) K/mcL Lymphocytes # (0.6-4.6) K/mcL Monocytes # (0.0-1.3) K/mcL Eosinophils # (0.0-0.6) K/mcL Basophils # (0.0-0.2) K/mcL PT (9.4-12.1) Seconds INR APTT (26.0-36.0) Seconds Sodium (136-145) mEq/L Potassium (3.5-4.5) mEq/L Chloride (98-109) mEq/L Carbon Dioxide (19-29) mEq/L BUN (7-20) mg/dL Creatinine (0.57-1.11) mg/dL Est GFR ( Amer) (> 60) Est GFR (Non-Af Amer) (> 60) BUN/Creatinine Ratio (6-26) Glucose (70-99) mg/dL Calculated Osmolality (280-300) Lactic Acid 1.2 (0.5-2.2) mmol/L Calcium (8.6-10.8) mg/dL Troponin I 0.00 (0-0.03) ng/mL Blood Type B POSITIVE Antibody Screen NEGATIVE - Radiology Data Radiology results reviewed: Yes I reviewed the patient's radiology results. Chest X-Ray 03/02/17 13:05 IMPRESSION: No acute cardiopulmonary disease. D/ / Gagan Mclean MD / Gagan Mclean MD Interpreting Provider: Gagan Mclean MD Abdomen/Pelvis CT 03/02/17 13:49 IMPRESSION: Negative except for haziness of the fat adjacent to the duodenal bulb suggesting duodenitis D/ / Murali Maguire MD / Murali Maguire MD Interpreting Provider: Murali Maguire MD - EKG Data EKG attestation: Yes I reviewed and interpreted this EKG. EKG shows normal: sinus rhythm Rate: bradycardia Rhythm: NSR Interpretation: no acute changes
[2017-03-02 13:50] LABS: Basophils # 0.1 K/mcL (0.0-0.2); Basophils % 0.3 %; Eosinophils # 0.4 K/mcL (0.0-0.6); Eosinophils % 2.6 %; Hematocrit 42.2 % (35.3-44.9); Hemoglobin 14.5 g/dL (11.5-15.4); Immature Granulocytes % 0.5 % (0-4); Lymphocytes # 2.3 K/mcL (0.6-4.6); Lymphocytes % 13.7 %; Mean Corpuscular HGB Conc 34.4 g/dL (31.6-35.5); Mean Corpuscular Hemoglobin 31.9 pg (28.0-33.3); Mean Platelet Volume 10.7 fL (9.4-12.4); Monocytes # 1.3 K/mcL (0.0-1.3); Monocytes % 7.6 %; Neutrophils # 12.8 K/mcL (1.6-8.9); Platelet Count 357 K/mcL (140-400); Red Blood Count 4.54 M/mcL (3.82-4.97); Red Cell Distribution Width 13.2 % (11.5-14.5); Segmented Neutrophils % 75.3 %
[2017-03-02 13:52] LABS: INR 1.1; Prothrombin Time 11.7 Seconds (9.4-12.1)
[2017-03-02 13:54] LABS: Activated Partial Thrombo Time 30.1 Seconds (26.0-36.0)
[2017-03-02 13:58] LABS: BUN/Creatinine Ratio 9 (6-26); Blood Urea Nitrogen 7 mg/dL (7-20); Calcium 9.9 mg/dL (8.6-10.8); Carbon Dioxide 31 mEq/L (19-29); Chloride 99 mEq/L (98-109); Glucose 112 mg/dL (70-99); Osmolality,Calculated 289 (280-300); Potassium 3.1 mEq/L (3.5-4.5); Sodium 140 mEq/L (136-145); eGFR For African Americans > 60 (> 60); eGFR For Non-African Americans > 60 (> 60)
[2017-03-02] MEDS ORDERED: MetroNIDAZOLE 500 MG/100 ML 500 MG/100 ML BAG IVPB ONE (16:09)
[2017-03-02] MEDS ORDERED: Levofloxacin 500 MG/100 ML 500 MG/100 ML BAG IVPB ONE (16:09)
[2017-03-02] MEDS ORDERED: Naloxone 0.4 MG/ML INJ IVP PRN (16:54)
--- NOTE | 2017-03-02 17:27 | Internal Med History&Physical ---
<Janet Couch M - Last Filed: 03/02/17 17:19> Date of Encounter: 03/02/17 Time of Encounter: 17:19 Assessment and Plan (1) Hypokalemia Current visit: Yes Status: Acute potassium of 3.1. Likely secondary to vomiting and diarrhea. 40mEq potassium IVPB ordered. Recheck chemistry daily. (2) Duodenitis Current visit: Yes Status: Acute Patient presents with nausea, vomiting, and epigastric abdominal pain. CT Abd/ pelvis consistent with duodenitis. FOB from PCP's office reportedly positive. Patient started on levaquin and flagyl by ED. Will trend WBC to determine if necessary to continue. GI panel ordered Clear liquid diet Protonix IVP BID Carafate GI consult NPO after midnight in case of possible EGD. (3) Nausea & vomiting Current visit: Yes Status: Acute Patient reports Nausea, vomiting, abdominal pain for 1 week. Likely secondary to duodenitis seen on CT. Clear liquid diet IV fluids 0.9NS at 80mL/hr zofran PRN for nausea Qualifiers: Vomiting type: cyclical vomiting Vomiting Intractability: unspecified Qualified Code(s): G43.A0 - Cyclical vomiting, not intractable (4) GI bleed Current visit: Yes Status: Acute Patient reports nausea, vomiting and abdominal pain x 1 week. FOB reportedly positive at PCP office today. Will check H/H Q8 hours. Protonix IVP BID GI consulted for possible EGD. Qualifiers: GI bleed type/associated pathology: unspecified gastrointestinal hemorrhage type Qualified Code(s): K92.2 - Gastrointestinal hemorrhage, unspecified (5) Marijuana abuse Current visit: Yes Status: Chronic Patient reports she smokes marijuana. Encouraged her to quit. (6) Smoking Current visit: Yes Status: Chronic Patient reportedly smokes 1PPD despite COPD diagnosis. Discussed smoking cessation and encouraged her to quit. Smoking cessation education and nicotine patch ordered. (7) DVT prophylaxis Current visit: Yes Status: Acute sequential compression devices. Pharmacologic prophylaxis contraindicated with possible GI bleed. Internal Medicine - H&P: HPI Chief complaint: nausea, vomiting, abdominal pain Admitted From: Emergency Dept Plans for Post Hospital Care: Home History of present illness: Ms. Calrk is a 56 year old female with COPD and anxiety presents emergency department today with complaints of nausea, vomiting, abdominal pain. Patient reports he symptoms have been going on for a week, she presented to an urgent care and they had her follow-up with her PCP. She went to her PCP today and had positive fecal occult blood and so was sent to the emergency department. Patient denies any gross blood in her stool, but does report nausea, vomiting and diarrhea for the last week. She reports abdominal pain in her epigastric area, worse with vomiting episodes. She denies any lightheadedness, chest pain , palpitations, increased shortness of breath. Evaluation in the ED included a CT of her abdomen and pelvis that was consistent with duodenitis. WBC elevated to 17.0. She was hypokalemic with potassium of 3.1. On exam, patient alert and oriented, in no distress. Lungs are clear bilaterally, heart has regular rate and rhythm. Abdomen is soft with positive bowel sounds, some mild tenderness to epigastric and RUQ. Past Med Surg Social Fam HX - Past Medical History Medical history: COPD, migraine, other Psychiatric history: no psych history - Past Surgical History Surgical History: orthopedic, other - Social History Smoking Status: Current every day smoker Smokeless Tobacco Status: No Alcohol use: none Drug use: marijuana - Family History Mother Living Status: Age at : 89 Cause of : Alzheimers Father Living Status: Still Living Internal Medicine - H&P: Meds Aclidinium Allen [Tudorza Pressair] 1 puff IH BID 11/03/16 [History] Albuterol Sulfate [Albuterol Inhaler] 2 puff IH Q4-6H PRN 11/03/16 [History] Cetirizine HCl [Zyrtec] 10 mg PO DAILY 11/03/16 [History] Meloxicam 15 mg PO DAILY 11/03/16 [History] Montelukast [Singulair] 10 mg PO DAILY 11/03/16 [History] Ondansetron HCl [Zofran] 4 - 8 mg PO BID PRN 11/03/16 [History] Paroxetine HCl [Paxil] 40 mg PO DAILY 11/03/16 [History] Ranitidine HCl [Zantac] 300 mg PO DAILY 11/03/16 [History] Tizanidine HCl 4 mg PO Q8H PRN 11/03/16 [History] clonazePAM [Klonopin] 0.5 mg PO TID PRN 11/03/16 [History] Gabapentin [Neurontin] 800 mg PO TID 03/02/17 [History] HYDROcodone/Acet 5/325 mg [Bozrah 5-325 mg] 1 tab PO BID PRN 03/02/17 [History] metroNIDAZOLE [Flagyl] 500 mg PO BID 03/02/17 [History] 3 Allergy/AdvReac Type Severity Reaction Status Date / Time chlordiazepoxide Allergy See Verified 11/03/16 20:06 [From Librium] Comments Penicillins AdvReac Nausea Verified 11/03/16 20:06 All Systems PM: A 10-system review of systems was performed and is negative for pertinent findings except as documented above in the HPI. - Constitutional Constitutional: anorexia, no chills, no fever(s), no night sweats - EENT Eyes: no change in vision, no discharge, no pain, no photophobia Ears: no ear discharge, no ear pain, no tinnitus Nose, mouth and throat: no dysphagia, no nasal discharge, no neck pain, no sore throat - Cardiovascular Cardiovascular ROS IM: no chest pain, no diaphoresis, no dyspnea, no lightheadedness, no palpitations, no syncope - Respiratory Respiratory: no cough, no dyspnea, no wheezing, no excessive phlegm production - Gastrointestinal Gastrointestinal: abdominal pain, melena, nausea, vomiting, no diarrhea, no hematemesis, no hematochezia - Genitourinary Genitourinary: no change in urinary stream, no dysuria, no flank pain, no hematuria - Musculoskeletal Musculoskeletal ROS IM: no numbness, no tingling - Integumentary Integumentary IM: no rash, no unusual bruising - Neurological Neurological ROS: no confusion, no convulsions, no focal weakness, no numbness, no tingling, no tremor(s) - Hematologic/Lymphatic Hematologic/Lymphatic: no easy bruising - Constitutional Vitals: Temp Pulse Resp BP Pulse Ox 0 F L 57 18 138/84 94 03/02/17 17:16 03/02/17 13:03 03/02/17 17:16 03/02/17 17:16 03/02/17 13:03 General appearance: Present: A&O X 3, pleasant, no acute distress - Head Head exam: Present: atraumatic, normocephalic - Eye Eye exam: Present: PERRL, conjuntiva pink, sclera anicteric Pupils: Present: PERRL - Neck Neck exam general surgery: Present: supple, trachea midline. Absent: lymphadenopathy - Respiratory Respiratory exam: Present: CTAB. Absent: accessory muscle use, rales, rhonchi, wheezes - Cardiovascular Cardiovascular exam: Present: RRR, +S1, +S2. Absent: diastolic murmur, gallop, rubs, systolic murmur - GI/Abdominal GI/Abdominal exam: Present: normal bowel sounds, soft, tenderness, no peritoneal signs. Absent: distended - Extremities Exam Extremities exam: Present: warm, radial pulses palpable and symmetrical. Absent : calf tenderness, cyanotic, pedal edema - Neurological Exam Neurological exam: Present: CN II-XII intact, oriented X3, no focal deficits. Absent: pronater drift, facial droop, speech deficit - Skin Skin exam: Present: dry, intact Internal Med - H&P Results - Labs CBC & Chem 7: 03/02/17 13:20 03/02/17 13:20 Labs: All Lab Results (24 Hours) 03/02/17 03/02/17 03/02/17 Range/Units 13:20 13:20 13:20 WBC 17.0 H (4.3-11.1) K/mcL RBC 4.54 (3.82-4.97) M/mcL Hgb 14.5 (11.5-15.4) g/dL Hct 42.2 (35.3-44.9) % MCV 93.0 (83.0-100.0) fL MCH 31.9 (28.0-33.3) pg MCHC 34.4 (31.6-35.5) g/dL RDW 13.2 (11.5-14.5) % Plt Count 357 (140-400) K/mcL MPV 10.7 (9.4-12.4) fL Immature Gran % 0.5 (0-4) % Seg Neutrophils % 75.3 % Lymphocytes % 13.7 % Monocytes % 7.6 % Eosinophils % 2.6 % Basophils % 0.3 % Neutrophils # 12.8 H (1.6-8.9) K/mcL Lymphocytes # 2.3 (0.6-4.6) K/mcL Monocytes # 1.3 (0.0-1.3) K/mcL Eosinophils # 0.4 (0.0-0.6) K/mcL Basophils # 0.1 (0.0-0.2) K/mcL PT 11.7 (9.4-12.1) Seconds INR 1.1 APTT 30.1 (26.0-36.0) Seconds Sodium 140 (136-145) mEq/L Potassium 3.1 L (3.5-4.5) mEq/L Chloride 99 (98-109) mEq/L Carbon Dioxide 31 H (19-29) mEq/L BUN 7 (7-20) mg/dL Creatinine 0.79 (0.57-1.11) mg/dL Est GFR ( Amer) > 60 (> 60) Est GFR (Non-Af Amer) > 60 (> 60) BUN/Creatinine Ratio 9 (6-26) Glucose 112 H (70-99) mg/dL Calculated Osmolality 289 (280-300) Lactic Acid (0.5-2.2) mmol/L Calcium 9.9 (8.6-10.8) mg/dL Troponin I (0-0.03) ng/mL Blood Type Antibody Screen 03/02/17 03/02/17 03/02/17 Range/Units 13:20 13:20 13:20 WBC (4.3-11.1) K/mcL RBC (3.82-4.97) M/mcL Hgb (11.5-15.4) g/dL Hct (35.3-44.9) % MCV (83.0-100.0) fL MCH (28.0-33.3) pg MCHC (31.6-35.5) g/dL RDW (11.5-14.5) % Plt Count (140-400) K/mcL MPV (9.4-12.4) fL Immature Gran % (0-4) % Seg Neutrophils % % Lymphocytes % % Monocytes % % Eosinophils % % Basophils % % Neutrophils # (1.6-8.9) K/mcL Lymphocytes # (0.6-4.6) K/mcL Monocytes # (0.0-1.3) K/mcL Eosinophils # (0.0-0.6) K/mcL Basophils # (0.0-0.2) K/mcL PT (9.4-12.1) Seconds INR APTT (26.0-36.0) Seconds Sodium (136-145) mEq/L Potassium (3.5-4.5) mEq/L Chloride (98-109) mEq/L Carbon Dioxide (19-29) mEq/L BUN (7-20) mg/dL Creatinine (0.57-1.11) mg/dL Est GFR ( Amer) (> 60) Est GFR (Non-Af Amer) (> 60) BUN/Creatinine Ratio (6-26) Glucose (70-99) mg/dL Calculated Osmolality (280-300) Lactic Acid 1.2 (0.5-2.2) mmol/L Calcium (8.6-10.8) mg/dL Troponin I 0.00 (0-0.03) ng/mL Blood Type B POSITIVE Antibody Screen NEGATIVE - Diagnostic Studies CT scan - abdomen Additional comments: Abdomen/Pelvis CT 03/02/17 13:49 IMPRESSION: Negative except for haziness of the fat adjacent to the duodenal bulb suggesting duodenitis D/ / Murali Maguire MD / Murali Maguire MD Interpreting Provider: Murali Maguire MD Chest x-ray Additional comments: Chest X-Ray 03/02/17 13:05 IMPRESSION: No acute cardiopulmonary disease. D/ / Gagan Mclean MD / Gagan Mclean MD Interpreting Provider: Gagan Mclean MD <Kehinde Espinal - Last Filed: 03/02/17 18:02> Date of Encounter: 03/02/17 Internal Medicine - H&P: HPI History of present illness: Ms. Clark is a 56 year old female All Systems PM: A 10-system review of systems was performed and is negative for pertinent findings except as documented above in the HPI. - Constitutional Vitals: Temp Pulse Resp BP Pulse Ox 99.0 F 80 16 128/85 90 03/02/17 17:54 03/02/17 17:54 03/02/17 17:54 03/02/17 17:54 03/02/17 17:54 Internal Med - H&P Results - Labs CBC & Chem 7: 03/02/17 13:20 03/02/17 13:20 - Attending Attestation I have personally performed a face to face evaluation on this patient and I discussed the assessment and plan with the nurse practitioner. I have reviewed and agree with the documented care plan. History and Exam by me shows: Ms. Clark is a 56 year old female with COPD and anxiety presents emergency department today with complaints of nausea, vomiting, abdominal pain. Patient reports he symptoms have been going on for a week, she presented to an urgent care and they had her follow-up with her PCP. She went to her PCP today and had positive fecal occult blood and so was sent to the emergency department. Patient denies any gross blood in her stool, but does report nausea, vomiting and diarrhea for the last week. She reports abdominal pain in her epigastric area, worse with vomiting episodes. She denies any lightheadedness, chest pain , palpitations, increased shortness of breath. Evaluation in the ED included a CT of her abdomen and pelvis that was consistent with duodenitis. Gen: A, A, O x3 Abd: Soft, mild tenderness in epigastric region.. no guarding / rigidity a/p 1. Acute duodenities PPI + Carafate GI consult for possible EGD ..
[2017-03-02] MEDS ORDERED: Potassium Chloride 40 MEQ, Lidocaine 1% 2 ML in D5% in Water 500 ML IVPB ONE (17:29)
[2017-03-02] MEDS: 0.9 % Sodium Chloride 1,000 ML IVC SCH (19:20)
[2017-03-02] MEDS: Nicotine 21 MG PATCH.TD24 TD SCH (19:21)
[2017-03-02 19:49] LABS: Hematocrit 38.5 % (35.3-44.9)
[2017-03-02 19:51] LABS: Hemoglobin 12.9 g/dL (11.5-15.4)
[2017-03-02] MEDS: Pantoprazole 40 MG VIAL IVP SCH (20:54)
[2017-03-02] MEDS: metroNIDAZOLE 500 MG TABLET PO SCH (20:54)
[2017-03-02] MEDS: Gabapentin 400 MG CAPSULE PO SCH (20:54)
[2017-03-02] MEDS: clonazePAM 0.5 MG TABLET PO PRN (23:16)
[2017-03-02] MEDS: Ondansetron 4 MG/2 ML VIAL IVP PRN (23:16)
[2017-03-03 00:46] LABS: Adenovirus F 40/41 PCR Not detected (Not detect); Astrovirus PCR Not detected (Not detect); C.difficile Toxin A/B by PCR Not detected (Not detect); Campylobacter by PCR Not detected (Not detect); Cryptosporidium by PCR Not detected (Not detect); Cyclospora cayetanensis PCR Not detected (Not detect); Entamoeba histolytica PCR Not detected (Not detect); Enteroaggregative E.coli(EAEC) Not detected (Not detect); Enteropathogenic E.coli(EPEC) Not detected (Not detect); Enterotoxigenic E.coli (ETEC) Not detected (Not detect); Giardia lamblia PCR Not detected (Not detect); Norovirus GI/GII PCR Not detected (Not detect); Plesiomonas shigelloides PCR Not detected (Not detect); Rotavirus A PCR Not detected (Not detect); Salmonella PCR Not detected (Not detect); Sapovirus PCR Not detected (Not detect); Shig/EnteroinvasiveE coli EIEC Not detected (Not detect); Shigalike tox-prod E coli STEC Not detected (Not detect); Vibrio PCR Not detected (Not detect); Vibrio cholerae PCR Not detected (Not detect); Yersinia enterocolitica PCR Not detected (Not detect)
[2017-03-03] MEDS: Acetaminophen 325 MG TABLET PO PRN (01:55)
[2017-03-03] MEDS ORDERED: SUMAtriptan 6 MG/0.5 ML SQ ONE (03:47)
[2017-03-03 08:26] LABS: BUN/Creatinine Ratio 8 (6-26); Blood Urea Nitrogen 6 mg/dL (7-20); Calcium 8.9 mg/dL (8.6-10.8); Carbon Dioxide 27 mEq/L (19-29); Chloride 106 mEq/L (98-109); Glucose 103 mg/dL (70-99); Osmolality,Calculated 294 (280-300); Potassium 3.1 mEq/L (3.5-4.5); Sodium 143 mEq/L (136-145); eGFR For African Americans > 60 (> 60); eGFR For Non-African Americans > 60 (> 60)
[2017-03-03 09:16] LABS: Basophils # 0.1 K/mcL (0.0-0.2); Basophils % 0.5 %; Eosinophils # 0.7 K/mcL (0.0-0.6); Hematocrit 37.1 % (35.3-44.9); Hemoglobin 12.4 g/dL (11.5-15.4); Immature Granulocytes % 0.4 % (0-4); Lymphocytes # 2.6 K/mcL (0.6-4.6); Mean Corpuscular HGB Conc 33.4 g/dL (31.6-35.5); Mean Corpuscular Hemoglobin 31.6 pg (28.0-33.3); Mean Corpuscular Volume 94.6 fL (83.0-100.0); Mean Platelet Volume 11.4 fL (9.4-12.4); Monocytes # 0.9 K/mcL (0.0-1.3); Monocytes % 8.1 %; Neutrophils # 7.4 K/mcL (1.6-8.9); Platelet Count 308 K/mcL (140-400); Red Blood Count 3.92 M/mcL (3.82-4.97); Red Cell Distribution Width 13.4 % (11.5-14.5)
[2017-03-03] MEDS: Nicotine 21 MG PATCH.TD24 TD SCH (09:32)
[2017-03-03] MEDS: Gabapentin 400 MG CAPSULE PO SCH ×3 (09:32→20:26)
[2017-03-03] MEDS: Pantoprazole 40 MG VIAL IVP SCH ×2 (09:32→20:26)
[2017-03-03] MEDS: metroNIDAZOLE 500 MG TABLET PO SCH (09:33)
[2017-03-03] MEDS: Sucralfate 1 GM TABLET PO SCH ×2 (09:34→15:44)
[2017-03-03] MEDS: Ondansetron 4 MG/2 ML VIAL IVP PRN ×2 (09:34→21:36)
[2017-03-03] MEDS: clonazePAM 0.5 MG TABLET PO PRN ×3 (10:02→20:26)
--- NOTE | 2017-03-03 11:16 | Internal Med Progress Note ---
Date of Encounter: 03/03/17 Time of Encounter: 12:15 - Assessment and plan (1) GI bleed Current Visit: Yes Status: Acute Assessment and plan: Hgb 12; baseline appears to be 15. Fecal occult stool reportedly positive at PCPs office. Patient reports melena at home. Clear liquids, IV PPI, monitor H&H , transfuse for Hgb less than 7. GI following and planning EGD in am Qualifiers: GI bleed type/associated pathology: unspecified gastrointestinal hemorrhage type Qualified Code(s): K92.2 - Gastrointestinal hemorrhage, unspecified (2) Duodenitis Current Visit: Yes Status: Acute Assessment and plan: presented with ABD pain, nausea, vomiting and loose stool for 7 days prior to admission. ABD CT suggestive of duodenitis. Stool studies negative. Afebrile, WBC tending down. IV levaquin and flagyl given in ED. Will hold on ATB at this time. Cont carafate, IV PPI. GI following (3) Hypokalemia Current Visit: Yes Status: Acute Assessment and plan: K 3.1, in the setting poor PO intake and vomiting. Replaced. Monitor repeat CMPs (4) DVT prophylaxis Current Visit: Yes Status: Acute Assessment and plan: SCDs with possible GI bleed - Subjective Interval history: Seen and examined at bedside, says she feels about the same. Still with abdominal pain and nausea. No emesis today. Feels likle she could tolerate clear liquids. No CP, no SOB - Constitutional Vitals: Temp Pulse Resp BP Pulse Ox 98.4 F 74 16 125/85 90 03/03/17 07:35 03/03/17 07:35 03/03/17 07:35 03/03/17 07:35 03/03/17 07:35 General appearance: Present: A&O X 3, pleasant, no acute distress - Head Head exam: Present: atraumatic, normocephalic - Eye Eye exam: Present: PERRL, conjuntiva pink, sclera anicteric Pupils: Present: PERRL - Neck Neck exam general surgery: Present: supple, trachea midline. Absent: lymphadenopathy - Respiratory Respiratory exam: Present: CTAB. Absent: accessory muscle use, rales, rhonchi, wheezes - Cardiovascular Cardiovascular exam: Present: RRR, +S1, +S2. Absent: diastolic murmur, gallop, rubs, systolic murmur - GI/Abdominal GI/Abdominal exam: Present: normal bowel sounds, soft, tenderness, no peritoneal signs. Absent: distended - Extremities Exam Extremities exam: Present: warm, radial pulses palpable and symmetrical. Absent : calf tenderness, cyanotic, pedal edema - Neurological Exam Neurological exam: Present: CN II-XII intact, oriented X3, no focal deficits. Absent: pronater drift, facial droop, speech deficit - Skin Skin exam: Present: dry, intact Internal Medicine: Result - Labs CBC & Chem 7: 03/03/17 07:07 03/03/17 07:07 Labs: Short CBC 03/02/17 03/03/17 Range/Units 19:38 07:07 WBC 11.7 H (4.3-11.1) K/mcL Hgb 12.9 D 12.4 (11.5-15.4) g/dL Hct 38.5 37.1 (35.3-44.9) % Plt Count 308 (140-400) K/mcL Neutrophils # 7.4 (1.6-8.9) K/mcL BMP 03/03/17 07:07 Sodium 143 Potassium 3.1 L Chloride 106 Carbon Dioxide 27 BUN 6 L Creatinine 0.73 Glucose 103 H Calcium 8.9 - ABG Interpretation ABG results: PT/INR, D-dimer PT 11.7 Seconds (9.4-12.1) 03/02/17 13:20 Consult Discharge Plan - Plan Referrals: Naty Cast [Primary Care Provider] -
--- NOTE | 2017-03-03 12:16 | Gastroenterology Consult Note ---
<Baltazar Quinn - Last Filed: 03/03/17 12:13> Date of Encounter: 03/03/17 Time of Encounter: 11:05 - Time Spent With Patient Total time spent is greater than 50% in coordination of care (as documented) at patient's floor/unit and/or counseling patient: GI History of Present Illness - Data of Consult Patient: new to practice Consult date: 03/03/17 Requesting Physician: Kyra Fink CNP - Consult Narrative Reason for consult: Duodenitis, positive FOBT History of present illness: Ms. Clark is a 56 year old female with PMHx of COPD, migraine, and anxiety who presented to the ED with complaints of nausea, vomiting, abdominal pain, and diarrhea which have been ongoing for the past week. She was seen at an urgent care and they instructed her to follow up with her PCP. Patient was seen at her PCPs office the day of admission and had a positive fecal occult blood test and was sent to the EGD. She denies fever, chills, chest pain, shortness of breath, lightheadedness, melena, hematochezia. She does report some epigastric abdominal pain. CT A/P with haziness of fat adjacent to the duodenal bulb suggestive of duodenitis. Procedures: None NSAIDs: Meloxicam Anticoagulation: None A/P 1. Duodenitis: CT A/P with haziness of fat adjacent to the duodenal bulb suggestive of duodenitis. Plan for EGD tomorrow. Keep NPO at midnight. Continue PPI and Carafate. 2. Nausea & Vomiting: Likely due to duodenitis but chronic marijuana use could be contributing as well. Continue PPI, Carafate. and PRN Zofran. Plan for EGD tomorrow. 3. Fecal occult blood test positive: FOBT positive at PCP office. Continue to monitor stools and CBC. Hgb WNL at this time. Past Med Surg Social Fam HX - Past Medical History Medical history: COPD, migraine, other Psychiatric history: anxiety, depression - Past Surgical History Surgical History: orthopedic, other - Social History Smoking Status: Current every day smoker Packs per day: 0.5 Smokeless Tobacco Status: No Alcohol use: none Drug use: marijuana - Family History Mother Name: Stef Jeronimo Family Member Ethnicity: Non- Living Status: Age at : 89 Cause of : Organs shut down Hx Family Cardiac Disorders: No Hx Family Respiratory Disorders: No Hx Family Cancer: No Hx Family GI Disorders: No Hx Family Genitourinary Disorders: Yes (Kidney disease) Hx Family Endocrine Disorder: No Hx Family Musculoskeletal Disorders: No Hx Family Neuromuscular Disorders: No Hx Family Neurologic Disorders: Yes (Alzheimer's Disease) Hx Family HEENT Disorders: No Hx Family Autoimmune Disorders: No Hx Family Reproductive Disorders: No Hx Family Psychosocial Disorders: No Hx Family Medical Disorders: No Father Name: Tye Jeronimo Age: 94 Family Member Ethnicity: Non- Living Status: Still Living Hx Family Cardiac Disorders: Yes (Aunt heart attack) Hx Family Respiratory Disorders: No Hx Family Cancer: Yes (Uncle inoperable cancer) Hx Family GI Disorders: No Hx Family Genitourinary Disorders: No Hx Family Endocrine Disorder: No Hx Family Musculoskeletal Disorders: No Hx Family Neuromuscular Disorders: Yes (grandma Parkinson's) Hx Family Neurologic Disorders: No Hx Family HEENT Disorders: No Hx Family Autoimmune Disorders: No Hx Family Reproductive Disorders: No Hx Family Psychosocial Disorders: No Hx Family Medical Disorders: No - Gastrointestinal Gastrointestinal: Present: as per HPI - Constitutional Constitutional: as per HPI - EENT Eyes: as per HPI Ears: Present: as per HPI Nose, mouth and throat: Present: as per HPI - Cardiovascular Cardiovascular ROS: Present: as per HPI - Respiratory Respiratory IM: Present: as per HPI - Genitourinary Genitourinary: Absent: change in color, Urinary frequency - Neurological ROS Neurological GI: Present: as per HPI - Hematologic/Lymphatic Hematologic/Lymphatic pediatric: Present: as per HPI - Musculoskeletal Musculoskeletal ROS GI: Present: as per HPI - Integumentary Integumentary GI: Present: as per HPI - Psychiatric ROS Psychiatric GI: Present: as per HPI - Endocrine Endocrine IM: Present: as per HPI - Constitutional Vitals: Temp Pulse Resp BP Pulse Ox 98.9 F 84 18 129/91 95 03/03/17 11:50 03/03/17 11:50 03/03/17 11:50 03/03/17 11:50 03/03/17 11:50 General appearance: Present: cooperative, A&O X 3, no acute distress, answers questions appropriately - Head Head exam: Present: atraumatic, normocephalic - Eye Eye exam: Present: normal appearance, sclera anicteric - ENT ENT exam: Present: mucous membranes dry - Neck Neck exam general surgery: Present: normal inspection, trachea midline - Respiratory Respiratory exam: Present: CTAB. Absent: rales, rhonchi - Cardiovascular Cardiovascular exam: Present: RRR, +S1, +S2 - GI/Abdominal GI/Abdominal exam: Present: soft, tenderness, no peritoneal signs. Absent: distended, firm, guarding - Rectal Rectal exam: Present: deferred - Extremities Exam Extremities exam: Present: warm - Neurological Exam Neurological exam: Present: no focal deficits - Psychiatric Psychiatric exam: Present: normal affect, normal mood - Skin Skin exam: Present: dry, intact, normal color, warm Results - Labs CBC & Chem 7: 03/03/17 07:07 03/03/17 07:07 Labs: Last Result Calcium 8.9 mg/dL (8.6-10.8) 03/03/17 07:07 Troponin I 0.00 ng/mL (0-0.03) 03/02/17 13:20 Stool Occult Blood Negative (Negative) 03/02/17 22:38 Entire Visit Hgb 12.4 g/dL (11.5-15.4) 03/03/17 07:07 Hct 37.1 % (35.3-44.9) 03/03/17 07:07 PT 11.7 Seconds (9.4-12.1) 03/02/17 13:20 - ABG ABG results: PT/INR, D-dimer PT 11.7 Seconds (9.4-12.1) 03/02/17 13:20 Consult Discharge Plan - Plan Referrals: Naty Cast [Primary Care Provider] - <Iván Miller - Last Filed: 03/03/17 19:23> Date of Encounter: 03/03/17 Time of Encounter: 18:30 - Time Spent With Patient Total time spent is greater than 50% in coordination of care (as documented) at patient's floor/unit and/or counseling patient: GI History of Present Illness - Data of Consult Requesting Physician: Kyra Fink CNP - Consult Narrative History of present illness: Ms. Clark is a 56 year old female - Constitutional Vitals: Temp Pulse Resp BP Pulse Ox 98.2 F 94 16 131/86 93 03/03/17 18:54 03/03/17 18:54 03/03/17 18:54 03/03/17 18:54 03/03/17 18:54 Results - Labs CBC & Chem 7: 03/03/17 07:07 03/03/17 07:07 Labs: Last Result Calcium 8.9 mg/dL (8.6-10.8) 03/03/17 07:07 Troponin I 0.00 ng/mL (0-0.03) 03/02/17 13:20 Stool Occult Blood Negative (Negative) 03/02/17 22:38 Entire Visit Hgb 12.4 g/dL (11.5-15.4) 03/03/17 07:07 Hct 37.1 % (35.3-44.9) 03/03/17 07:07 PT 11.7 Seconds (9.4-12.1) 03/02/17 13:20 - ABG ABG results: PT/INR, D-dimer PT 11.7 Seconds (9.4-12.1) 03/02/17 13:20 - Attending Attestation I examined this patient and my medical decision-making was reviewed with the Resident Physician. I agree with the documented findings, disposition and treatment plan as described except to the extent set forth below.
[2017-03-04 05:23] LABS: Hematocrit 37.5 % (35.3-44.9); Hemoglobin 12.3 g/dL (11.5-15.4); Mean Corpuscular HGB Conc 32.8 g/dL (31.6-35.5); Mean Corpuscular Hemoglobin 31.7 pg (28.0-33.3); Mean Corpuscular Volume 96.6 fL (83.0-100.0); Mean Platelet Volume 10.6 fL (9.4-12.4); Platelet Count 269 K/mcL (140-400); Red Blood Count 3.88 M/mcL (3.82-4.97); Red Cell Distribution Width 13.7 % (11.5-14.5)
[2017-03-04] MEDS: 0.9 % Sodium Chloride 1,000 ML IVC SCH ×2 (05:41→20:08)
[2017-03-04 05:44] LABS: Alanine Aminotransferase 15 Units/L (0-55); Albumin 3.1 g/dL (3.5-5.0); Albumin/Globulin Ratio 1.1 (1.1-2.2); Alkaline Phosphatase 60 Units/L (38-126); Aspartate Amino Transferase 11 Units/L (5-34); BUN/Creatinine Ratio 9 (6-26); Bilirubin,Total 0.3 mg/dL (0.2-1.2); Blood Urea Nitrogen 6 mg/dL (7-20); Calcium 8.7 mg/dL (8.6-10.8); Carbon Dioxide 24 mEq/L (19-29); Chloride 109 mEq/L (98-109); Globulin 2.7 g/dL (2.4-3.5); Glucose 105 mg/dL (70-99); Osmolality,Calculated 290 (280-300); Potassium 3.1 mEq/L (3.5-4.5); Sodium 141 mEq/L (136-145); Total Protein 5.8 g/dL (6.0-8.3); eGFR For African Americans > 60 (> 60); eGFR For Non-African Americans > 60 (> 60)
--- NOTE | 2017-03-04 08:08 | Electrocardiograph Report ---
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
[2017-03-04] MEDS ORDERED: SUMAtriptan 6 MG/0.5 ML SQ ONE (09:03)
[2017-03-04] MEDS: Pantoprazole 40 MG VIAL IVP SCH ×2 (09:44→20:07)
[2017-03-04] MEDS: Nicotine 21 MG PATCH.TD24 TD SCH ×2 (09:45→09:53)
[2017-03-04] MEDS: Sucralfate 1 GM TABLET PO SCH ×2 (09:45→17:32)
[2017-03-04] MEDS: Gabapentin 400 MG CAPSULE PO SCH ×3 (09:45→20:06)
[2017-03-04] MEDS: clonazePAM 0.5 MG TABLET PO PRN ×3 (09:54→20:07)
[2017-03-04] MEDS ORDERED: *HR* FentaNYL (PF) 100 MCG/2 ML VIAL ONE (11:44)
[2017-03-04] MEDS ORDERED: *HR* Midazolam HCl 5 MG/5 ML VIAL IVP ONE (11:44)
[2017-03-04] MEDS: Ondansetron 4 MG/2 ML VIAL IVP PRN (11:46)
[2017-03-04] MEDS ORDERED: *HR* HYDROcodone/Acet 5/325 mg TABLET PO ONE (15:07)
--- NOTE | 2017-03-04 15:52 | Internal Med Progress Note ---
Date of Encounter: 03/04/17 Time of Encounter: 15:54 - Assessment and plan (1) Duodenitis Current Visit: Yes Status: Acute Assessment and plan: Ms. Clark is a 56 year old female with PMH COPD, migraine, and anxiety who presented to [facility] on 03/03/2017 with complaints of nausea, vomiting, abdominal pain, and diarrhea for one week. She was seen at an urgent care and was advised to follow up with PCP. Patient was seen at PCPs office the day of presentation and had a positive fecal occult blood test and was sent to ED for further evaluation and treatment. presented with ABD pain, nausea, vomiting and loose stool for 7 days prior to admission. ABD CT suggestive of duodenitis. Stool studies negative. Afebrile, WBC tending down. IV levaquin and flagyl given in ED. Will hold on ATB at this time. Cont carafate, IV PPI. EGD planned 03/04. GI following (2) GI bleed Current Visit: Yes Status: Acute Assessment and plan: Hgb 12; baseline appears to be 15. Fecal occult stool reportedly positive at PCPs office. Patient reports melena at home. Clear liquids, IV PPI, monitor H&H , transfuse for Hgb less than 7. GI following and planning EGD 03/04. Hgb 12.3 on 03/04 Qualifiers: GI bleed type/associated pathology: unspecified gastrointestinal hemorrhage type Qualified Code(s): K92.2 - Gastrointestinal hemorrhage, unspecified (3) Hypokalemia Current Visit: Yes Status: Acute Assessment and plan: K 3.1, in the setting poor PO intake and vomiting. Replaced. Monitor repeat CMPs (4) Acute anxiety Current Visit: No Status: Acute Assessment and plan: per hx. Cont home Paxil and Klonopin (5) DVT prophylaxis Current Visit: Yes Status: Acute Assessment and plan: SCDs with possible GI bleed - Subjective Interval history: Seen and examined at bedside, says she had an uneventful night. She complains of migraine and is requesting home Imitrex. Having some intermittent nausea, no vomiting. Still with intermittent abdominal pain. No CP, no SOB - Constitutional Vitals: Temp Pulse Resp BP Pulse Ox 98.7 F 77 16 128/88 94 03/04/17 15:20 03/04/17 15:20 03/04/17 15:20 03/04/17 15:20 03/04/17 15:20 General appearance: Present: A&O X 3, pleasant, no acute distress - Head Head exam: Present: atraumatic, normocephalic - Eye Eye exam: Present: PERRL, conjuntiva pink, sclera anicteric Pupils: Present: PERRL - Neck Neck exam general surgery: Present: supple, trachea midline. Absent: lymphadenopathy - Respiratory Respiratory exam: Present: CTAB. Absent: accessory muscle use, rales, rhonchi, wheezes - Cardiovascular Cardiovascular exam: Present: RRR, +S1, +S2. Absent: diastolic murmur, gallop, rubs, systolic murmur - GI/Abdominal GI/Abdominal exam: Present: normal bowel sounds, soft, no peritoneal signs. Absent: distended, tenderness - Extremities Exam Extremities exam: Present: warm, radial pulses palpable and symmetrical. Absent : calf tenderness, cyanotic, pedal edema - Neurological Exam Neurological exam: Present: CN II-XII intact, oriented X3, no focal deficits. Absent: pronater drift, facial droop, speech deficit - Skin Skin exam: Present: dry, intact Internal Medicine: Result - Labs CBC & Chem 7: 03/04/17 05:10 03/04/17 05:10 Labs: Short CBC 03/04/17 Range/Units 05:10 WBC 9.9 (4.3-11.1) K/mcL Hgb 12.3 (11.5-15.4) g/dL Hct 37.5 (35.3-44.9) % Plt Count 269 (140-400) K/mcL BMP 03/04/17 05:10 Sodium 141 Potassium 3.1 L Chloride 109 Carbon Dioxide 24 BUN 6 L Creatinine 0.68 Glucose 105 H Calcium 8.7 Liver Function 03/04/17 Range/Units 05:10 Total Bilirubin 0.3 (0.2-1.2) mg/dL AST 11 (5-34) Units/L ALT 15 (0-55) Units/L Alkaline Phosphatase 60 (38-126) Units/L Albumin 3.1 L (3.5-5.0) g/dL - ABG Interpretation ABG results: PT/INR, D-dimer PT 11.7 Seconds (9.4-12.1) 03/02/17 13:20 Consult Discharge Plan - Plan Referrals: Naty Cast [Primary Care Provider] -
[2017-03-04] MEDS ORDERED: Simethicone 40 MG/0.6 ML MLS IR ONE (16:35)
[2017-03-04] MEDS ORDERED: Tetracaine/Benzocaine/Butamben 200MG/SPRAY (100SPY/BOT) MM ONE (16:35)
[2017-03-04] MEDS ORDERED: *HR* Midazolam HCl 5 MG/5 ML VIAL IVP PRN (16:35)
[2017-03-04] MEDS ORDERED: *HR* FentaNYL (PF) 100 MCG/2 ML VIAL IVP PRN (16:35)
--- NOTE | 2017-03-04 16:35 | Pre-Sedation Evaluation ---
Pre-sedation evaluation - Pre-sedation checklist Date of procedure: 03/04/17 Procedure: EGD Recent Vitals: Last Vital Signs Temp 98.7 F 03/04/17 16:12 Pulse 74 03/04/17 16:12 Resp 18 03/04/17 16:12 BP 155/99 03/04/17 16:12 Pulse Ox 95 03/04/17 16:12 H&P (including ROS) documented in medical record: Yes Previous reaction to sedatives/anesthetics: No Dietary Status: NPO after Midnight Dentition: dentures removed ASA Classification *see protocol: CLASS III-Severe systemic disease Plan of Care: Pt appropriate candidate for procedure/moderate/conscious sedation , Risks/benefits of procedure/sedation discussed w/ patient/family
[2017-03-04] MEDS: *HR* HYDROcodone/Acet 5/325 mg TABLET PO PRN (20:47)
[2017-03-05] MEDS: *HR* HYDROcodone/Acet 5/325 mg TABLET PO PRN (03:41)
[2017-03-05] MEDS: 0.9 % Sodium Chloride 1,000 ML IVC SCH ×3 (03:42→07:59)
[2017-03-05 03:47] LABS: Hemoglobin 11.7 g/dL (11.5-15.4); Mean Corpuscular HGB Conc 32.5 g/dL (31.6-35.5); Mean Corpuscular Hemoglobin 31.9 pg (28.0-33.3); Mean Corpuscular Volume 98.1 fL (83.0-100.0); Mean Platelet Volume 11.2 fL (9.4-12.4); Platelet Count 289 K/mcL (140-400); Red Blood Count 3.67 M/mcL (3.82-4.97); Red Cell Distribution Width 13.8 % (11.5-14.5)
[2017-03-05 04:09] LABS: Alanine Aminotransferase 15 Units/L (0-55); Albumin 2.8 g/dL (3.5-5.0); Albumin/Globulin Ratio 1.1 (1.1-2.2); Alkaline Phosphatase 57 Units/L (38-126); Aspartate Amino Transferase 13 Units/L (5-34); BUN/Creatinine Ratio 9 (6-26); Blood Urea Nitrogen 8 mg/dL (7-20); Calcium 8.3 mg/dL (8.6-10.8); Carbon Dioxide 24 mEq/L (19-29); Chloride 111 mEq/L (98-109); Globulin 2.6 g/dL (2.4-3.5); Glucose 108 mg/dL (70-99); Osmolality,Calculated 293 (280-300); Sodium 142 mEq/L (136-145); Total Protein 5.4 g/dL (6.0-8.3); eGFR For African Americans > 60 (> 60); eGFR For Non-African Americans > 60 (> 60)
[2017-03-05 04:15] LABS: Bilirubin,Total < 0.2 mg/dL (0.2-1.2); Potassium 4.4 mEq/L (3.5-4.5)
[2017-03-05] MEDS: Pantoprazole 40 MG VIAL IVP SCH (07:59)
[2017-03-05] MEDS: Sucralfate 1 GM TABLET PO SCH (07:59)
[2017-03-05] MEDS: clonazePAM 0.5 MG TABLET PO PRN (07:59)
[2017-03-05] MEDS: Acetaminophen 325 MG TABLET PO PRN (08:00)
[2017-03-05] MEDS: Gabapentin 400 MG CAPSULE PO SCH ×2 (08:00→14:16)
[2017-03-05] MEDS ORDERED: SUMAtriptan 6 MG/0.5 ML SQ ONE (08:30)
[2017-03-05] MEDS ORDERED: Nicotine 21 MG PATCH.TD24 TD SCH (09:00)
[2017-03-05 11:38] VITALS: BP 144/97
--- NOTE | 2017-03-05 11:45 | Discharge Summary ---
Date of Encounter: 03/05/17 Time of Encounter: 11:33 - Discharge Diagnosis (1) Duodenitis Priority: Primary Status: Acute Comments: Ms. Clark is a 56 year old female with PMH COPD, migraine, and anxiety who presented to [facility] on 03/03/2017 with complaints of nausea, vomiting, abdominal pain, and diarrhea for one week. She was seen at an urgent care and was advised to follow up with PCP. Patient was seen at PCPs office the day of presentation and had a positive fecal occult blood test and was sent to ED for further evaluation and treatment. She was evaluated by GI and underwent an EH+D that showed a non-bleeding ulcer. She was discharged home in stable condition with GI follow-up presented with ABD pain, nausea, vomiting and loose stool for 7 days prior to admission. ABD CT suggestive of duodenitis. Stool studies negative. Repeat occult stool negative. IV levaquin and flagyl given in ED. Held on ATB as she remained Afebrile, no elevated WBC. 03/04/2017 EGD with pyloric ulcer, no evidence of bleeding. Cont carafate, PPI. Can follow-up with GI outpatient (2) Hypokalemia Priority: Primary Status: Acute Comments: K 3.1, in the setting of poor PO intake and emesis prior to admission. Normalized with replacement. Recommend repeat CMP with PCP in 5-7 days. (3) Chronic pain Priority: Primary Status: Acute Comments: patient reports neck and back pain also still with some abdominal discomfort at discharge but improved. She is requesting pain medication at discharge. [place]AR[place] verified 03/05/2017 and patient received 4 day supply [place] 02/28/2017 ( patient presented to [facility] on 03/02, therefore she should have 2 day supply at home). Concerned for malingering with repeated request. Will send home with 1 day [place]. That will be a total of 3 days of medication. Patient advised to follow-up with PCP Qualifiers: Chronic pain type: chronic pain syndrome Qualified Code(s): G89.4 - Chronic pain syndrome (4) Acute anxiety Priority: Primary Status: Acute Comments: per hx. [place]AR[place] verified on 03/05/2017 and patient does have active rx. Cont home regimen at discharge. (5) DVT prophylaxis Priority: Secondary Status: Acute Comments: SCDs - Discharge Medications Prescriptions: HYDROcodone/Acet 5/325 mg [[place] 5-325 mg] 1 tab PO Q6HR PRN #4 tablet PRN Reason: Severe Pain Omeprazole [PriLOSEC] 40 mg PO BIDAC #60 capsule. Sucralfate [Carafate] 1 gm PO 0730,1630 #30 tablet Home Medications: Aclidinium [place]at[place] [Tudorza Pressair] 1 puff IH BID 11/03/16 [History] Albuterol Sulfate [Albuterol Inhaler] 2 puff IH Q4-6H PRN 11/03/16 [History] Cetirizine HCl [Zyrtec] 10 mg PO DAILY 11/03/16 [History] Montelukast [Singulair] 10 mg PO DAILY 11/03/16 [History] Ondansetron HCl [Zofran] 4 - 8 mg PO BID PRN 11/03/16 [History] Paroxetine HCl [Paxil] 40 mg PO DAILY 11/03/16 [History] Tizanidine HCl 4 mg PO Q8H PRN 11/03/16 [History] clonazePAM [Klonopin] 0.5 mg PO TID PRN 11/03/16 [History] Gabapentin [Neurontin] 800 mg PO TID 03/02/17 [History] HYDROcodone/Acet 5/325 mg [[place] 5-325 mg] 1 tab PO BID PRN 03/02/17 [History] HYDROcodone/Acet 5/325 mg [[place] 5-325 mg] 1 tab PO Q6HR PRN #4 tablet 03/05/17 [Rx] Omeprazole [PriLOSEC] 40 mg PO BIDAC #60 capsule. 03/05/17 [Rx] Sucralfate [Carafate] 1 gm PO 0730,1630 #30 tablet 03/05/17 [Rx] Allergies/Adverse Reactions: 3 Allergy/AdvReac Type Severity Reaction Status Date / Time chlordiazepoxide Allergy See Verified 11/03/16 20:06 [From Librium] Comments Penicillins AdvReac Nausea Verified 11/03/16 20:06 Date of admission: 03/02/17 16:25 Primary care physician: Naty Cast Consults: 03/02/17 16:59 Consult to Gastroenterology [CONS] Routine Consulting Provider: Gastroenterology Nikkie Reason for Consult: 56F with duodenitis, positive FOB at her PCP. Call Completed: No Discharging clinician: Kyra Fink Anticipated date of discharge: 03/05/17 - Patient Status Disposition: Home, Self-Care Condition: Good Functional capacity at discharge: independent ambulation Overall status at discharge: patient is back to baseline - Discharge Instructions Follow Up With: Naty Cast [Primary Care Provider] - Iván Miller MD [Partnered Physician] - - Diet and Activity Activity: increase activity as tolerated Diet: advance to your usual diet, other (avoid spicy foods) Interval History: Seen and examined at bedside. She says she feels better but still with some ABD discomfort. Reviewed EGD results with patient. Patient is requesting pain medicine at discharge, advised patient that opiates are not recommended for gastric ulcer treatment. She also reports neck and lower back pain. No nausea, no vomiting, no loose stools. Hospital course: Ms. Clark is a 56 year old female - Time Spent with Patient Total time spent providing and/or coordinating discharge services: Greater than 30 minutes (58 minutes spent on discharge) - Constitutional Vitals: Temp Pulse Resp BP Pulse Ox 98 F 80 14 141/81 94 03/05/17 07:28 03/05/17 07:28 03/05/17 07:28 03/05/17 07:28 03/05/17 07:28 General appearance: Present: A&O X 3, pleasant, no acute distress - Head Head exam: Present: atraumatic, normocephalic - Eye Eye exam: Present: PERRL, conjuntiva pink, sclera anicteric Pupils: Present: PERRL - Neck Neck exam general surgery: Present: supple, trachea midline. Absent: lymphadenopathy - Respiratory Respiratory exam: Present: CTAB. Absent: accessory muscle use, rales, rhonchi, wheezes - Cardiovascular Cardiovascular exam: Present: RRR, +S1, +S2. Absent: diastolic murmur, gallop, rubs, systolic murmur - GI/Abdominal GI/Abdominal exam: Present: normal bowel sounds, soft, no peritoneal signs. Absent: distended, tenderness - Extremities Exam Extremities exam: Present: warm, radial pulses palpable and symmetrical. Absent : calf tenderness, cyanotic, pedal edema - Neurological Exam Neurological exam: Present: CN II-XII intact, oriented X3, no focal deficits. Absent: pronater drift, facial droop, speech deficit - Skin Skin exam: Present: dry, intact
== END 2017-03-05 14:25 | disposition home or self-care (01) ==
LOC: 3BNU 13:02 → EMEROO 13:02 → 3BNU 17:19
PROVIDERS: ADMIT Family Medicine; ATTEND Registered Nurse
PROC: ENDOEBX (2017-03-04 16:00)

== ENCOUNTER 2018-01-24 12:27 | Observation (INO) ==
[2018-01-24] MEDS ORDERED: Ondansetron 4 MG/2 ML VIAL IVP ONE (13:25)
[2018-01-24] MEDS ORDERED: 0.9 % Sodium Chloride 1,000 ML IVC ONE (13:25)
[2018-01-24] MEDS ORDERED: Ipratropium/Albuterol Neb 3 ML IH ONE (13:25)
[2018-01-24 13:35] LABS: Basophils # 0.1 K/mcL (0.0-0.2); Basophils % 0.5 %; Eosinophils # 0.1 K/mcL (0.0-0.6); Eosinophils % 0.6 %; Hematocrit 45.2 % (35.3-44.9); Hemoglobin 15.6 g/dL (11.5-15.4); Immature Granulocytes % 0.4 % (0-4); Lymphocytes # 1.1 K/mcL (0.6-4.6); Lymphocytes % 9.6 %; Mean Corpuscular HGB Conc 34.5 g/dL (31.6-35.5); Mean Corpuscular Hemoglobin 32.7 pg (28.0-33.3); Mean Corpuscular Volume 94.8 fL (83.0-100.0); Mean Platelet Volume 10.9 fL (9.4-12.4); Monocytes # 0.4 K/mcL (0.0-1.3); Monocytes % 3.3 %; Neutrophils # 9.5 K/mcL (1.6-8.9); Platelet Count 299 K/mcL (140-400); Red Blood Count 4.77 M/mcL (3.82-4.97); Red Cell Distribution Width 13.9 % (11.5-14.5); Segmented Neutrophils % 85.6 %
[2018-01-24] MEDS ORDERED: predniSONE 20 MG TABLET PO ONE (13:35)
[2018-01-24 13:40] LABS: Prothrombin Time 11.5 Seconds (9.4-12.1)
--- NOTE | 2018-01-24 13:53 | Emergency Department Note ---
Disposition Clinical Impression: COPD exacerbation Disposition: Admitted As Inpatient Condition: Undetermined General Adult HPI - General Chief complaint: ED Chest Pain Stated complaint: JOSE Time Seen by Provider: 01/24/18 13:03 Source: patient Limitations: no limitations - History of Present Illness Pain Scale: 10 - Related Data Home Medications Medication Instructions Recorded Confirmed Albuterol Sulfate [Albuterol 2 puff IH Q4-6H PRN 11/03/16 01/24/18 Inhaler] Cetirizine HCl [Zyrtec] 10 mg PO DAILY 11/03/16 01/24/18 Paroxetine HCl [Paxil] 40 mg PO DAILY 11/03/16 01/24/18 Tizanidine HCl 4 mg PO Q8H PRN 11/03/16 01/24/18 Amitriptyline [Elavil] 10 mg PO HS 01/24/18 01/24/18 Fluticasone/Vilanterol [Breo 2 puff IH DAILY 01/24/18 01/24/18 Ellipta 100-25 Mcg INH] Meloxicam [Meloxicam] 15 mg PO DAILY 01/24/18 01/24/18 Omeprazole [PriLOSEC] 40 mg PO DAILY 01/24/18 01/24/18 Sucralfate [Carafate] 1 gm PO QID 01/24/18 01/24/18 cloNIDine HCl [CloNIDine HCl] 0.1 mg PO DAILY 01/24/18 01/24/18 raNITIdine HCl [Zantac] 150 mg PO BID 01/24/18 01/24/18 Allergies Allergy/AdvReac Type Severity Reaction Status Date / Time chlordiazepoxide Allergy See Verified 04/10/17 18:32 [From Librium] Comments Penicillins AdvReac Nausea Verified 04/10/17 18:32 Past Medical History - Past Medical History Medical history: Reports: COPD, GERD, migraine, other Surgical history: Reports: orthopedic, other Psychiatric history: Reports: anxiety, depression [employer]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 - Social History Smoking Status: Current every day smoker Smokeless Tobacco Status: No Alcohol use: Reports: none Drug use: Reports: none Physical Exam - General Limitations: no limitations General appearance: alert, in no apparent distress Course Vital Signs Temperature 98.5 F 01/24/18 13:00 Pulse Rate 66 01/24/18 13:00 Respiratory Rate 20 01/24/18 13:00 Blood Pressure 146/100 01/24/18 13:00 O2 Sat by Pulse Oximetry 97 01/24/18 13:00 Temperature 98.5 F 01/24/18 13:00 Pulse Rate 101 01/24/18 16:16 Respiratory Rate 16 01/24/18 16:16 Blood Pressure 132/101 01/24/18 16:16 O2 Sat by Pulse Oximetry 97 01/24/18 16:16 Oxygen Delivery Oxygen Delivery Nasal Cannula Medical Decision Making - Lab Data Result diagrams: 01/24/18 13:18 01/24/18 13:18 Lab Results 01/24/18 01/24/18 01/24/18 Range/Units 13:18 13:18 13:18 WBC 11.1 (4.3-11.1) K/mcL RBC 4.77 (3.82-4.97) M/mcL Hgb 15.6 H (11.5-15.4) g/dL Hct 45.2 H (35.3-44.9) % MCV 94.8 (83.0-100.0) fL MCH 32.7 (28.0-33.3) pg MCHC 34.5 (31.6-35.5) g/dL RDW 13.9 (11.5-14.5) % Plt Count 299 (140-400) K/mcL MPV 10.9 (9.4-12.4) fL Immature Gran % 0.4 (0-4) % Seg Neutrophils % 85.6 % Lymphocytes % 9.6 % Monocytes % 3.3 % Eosinophils % 0.6 % Basophils % 0.5 % Neutrophils # 9.5 H (1.6-8.9) K/mcL Lymphocytes # 1.1 (0.6-4.6) K/mcL Monocytes # 0.4 (0.0-1.3) K/mcL Eosinophils # 0.1 (0.0-0.6) K/mcL Basophils # 0.1 (0.0-0.2) K/mcL PT 11.5 (9.4-12.1) Seconds INR 1.0 Sodium 141 (136-145) mEq/L Potassium 3.8 (3.5-5.1) mEq/L Chloride 105 (98-107) mEq/L Carbon Dioxide 28 (23-29) mEq/L BUN 6 (6-20) mg/dL Creatinine 0.80 (0.60-1.20) mg/dL Est GFR ( Amer) > 60 (> 60) Est GFR (Non-Af Amer) > 60 (> 60) BUN/Creatinine Ratio 8 (6-26) Glucose 125 H (70-105) mg/dL Calculated Osmolality 291 (280-300) Lactic Acid (0.5-2.2) mmol/L Calcium 10.1 (8.6-10.3) mg/dL Total Bilirubin 0.4 (0.3-1.0) mg/dL Direct Bilirubin 0.1 (0.0-0.2) mg/dL Indirect Bilirubin 0.3 (0.0-1.2) mg/dL AST 17 (13-39) Units/L ALT 18 (7-52) Units/L Alkaline Phosphatase 61 (34-104) Units/L Troponin I < 0.03 (< 0.04) ng/mL Serum Total Protein 7.2 (6.4-8.9) g/dL Albumin 4.5 (3.5-5.7) g/dL Globulin 2.7 (2.4-3.5) g/dL Albumin/Globulin Ratio 1.7 (1.1-2.2) Amylase 38 (29-103) Units/L Lipase 30 (11-82) Units/L Urine Color (Yellow) Urine Clarity (Clear) Urine pH (5.0-8.0) pH Units Ur Specific [place] (1.010-1.025) Urine Protein (Neg-Trace) mg/dL Urine Glucose (UA) (Normal) mg/dL Urine Ketones (Negative) mg/dL Urine Blood (Negative) Urine Nitrite (Negative) Urine Bilirubin (Negative) Urine Urobilinogen (Normal) mg/dL Ur Leukocyte Esterase (Negative) Urine Microscopic RBC (0-3) per hpf Urine Microscopic WBC (0-3) per hpf Ur Squamous Epith Cells (None-Few) per lpf Urine Bacteria (None-Few) per hpf Hyaline Casts (None-Few) per lpf Ur Culture Indicated? (NO) 01/24/18 01/24/18 Range/Units 13:43 14:02 WBC (4.3-11.1) K/mcL RBC (3.82-4.97) M/mcL Hgb (11.5-15.4) g/dL Hct (35.3-44.9) % MCV (83.0-100.0) fL MCH (28.0-33.3) pg MCHC (31.6-35.5) g/dL RDW (11.5-14.5) % Plt Count (140-400) K/mcL MPV (9.4-12.4) fL Immature Gran % (0-4) % Seg Neutrophils % % Lymphocytes % % Monocytes % % Eosinophils % % Basophils % % Neutrophils # (1.6-8.9) K/mcL Lymphocytes # (0.6-4.6) K/mcL Monocytes # (0.0-1.3) K/mcL Eosinophils # (0.0-0.6) K/mcL Basophils # (0.0-0.2) K/mcL PT (9.4-12.1) Seconds INR Sodium (136-145) mEq/L Potassium (3.5-5.1) mEq/L Chloride (98-107) mEq/L Carbon Dioxide (23-29) mEq/L BUN (6-20) mg/dL Creatinine (0.60-1.20) mg/dL Est GFR ( Amer) (> 60) Est GFR (Non-Af Amer) (> 60) BUN/Creatinine Ratio (6-26) Glucose (70-105) mg/dL Calculated Osmolality (280-300) Lactic Acid 1.2 (0.5-2.2) mmol/L Calcium (8.6-10.3) mg/dL Total Bilirubin (0.3-1.0) mg/dL Direct Bilirubin (0.0-0.2) mg/dL Indirect Bilirubin (0.0-1.2) mg/dL AST (13-39) Units/L ALT (7-52) Units/L Alkaline Phosphatase (34-104) Units/L Troponin I (< 0.04) ng/mL Serum Total Protein (6.4-8.9) g/dL Albumin (3.5-5.7) g/dL Globulin (2.4-3.5) g/dL Albumin/Globulin Ratio (1.1-2.2) Amylase (29-103) Units/L Lipase (11-82) Units/L Urine Color Yellow (Yellow) Urine Clarity Slightly Hazy (Clear) Urine pH 7.5 (5.0-8.0) pH Units Ur Specific [place] 1.014 (1.010-1.025) Urine Protein 30 H (Neg-Trace) mg/dL Urine Glucose (UA) Normal (Normal) mg/dL Urine Ketones 40 H (Negative) mg/dL Urine Blood Negative (Negative) Urine Nitrite Negative (Negative) Urine Bilirubin Negative (Negative) Urine Urobilinogen Normal (Normal) mg/dL Ur Leukocyte Esterase Negative (Negative) Urine Microscopic RBC 3-5 H (0-3) per hpf Urine Microscopic WBC 0-3 (0-3) per hpf Ur Squamous Epith Cells Many H (None-Few) per lpf Urine Bacteria Few (None-Few) per hpf Hyaline Casts None Seen (None-Few) per lpf Ur Culture Indicated? NO (NO) Attestation Statement - Attestation Attestation: I examined this patient and my medical decision-making was reviewed with the Resident Physician. I agree with the documented findings, disposition and treatment plan as described except to the extent set forth below. Patient presents to the ED with a chief complaint of abdominal pain and shortness of breath. Patient states for the past several days she has had vomiting and diarrhea. She does not notice blood in them because she states the light is out of her bathroom. She states she has had pain in her upper abdomen. She is concerned because she has been told she has an ulcer somewhere. Today she started expressing chest pain. Upper chest and pressure. On examination she is diaphoretic. Upper abdominal tenderness. Lungs with expiratory wheezing. Plan. Cardiac workup. CT abdomen pelvis. Patient feeling better. No longer diaphoretic. CT abdomen and pelvis is unremarkable. Increased air exchange and decreased wheezing on lung auscultation. Patient admitted. Abdomen/Pelvis CT 01/24/18 13:26 IMPRESSION: 1. No acute intra-abdominal abnormality. 2. No acute intrapelvic abnormality. 3. No urinary tract calcifications seen. D/ / Nadeem Ramirez MD / Nadeem Ramirez MD Interpreting Provider: Nadeem Ramirez MD Chest X-Ray 01/24/18 14:33 IMPRESSION: No acute process. D/ / Baltazar Kline MD / Baltazar Kline MD Interpreting Provider: Baltazar Kline MD
[2018-01-24 13:56] LABS: Troponin I < 0.03 ng/mL (< 0.04)
[2018-01-24 13:57] LABS: Alanine Aminotransferase 18 Units/L (7-52); Albumin 4.5 g/dL (3.5-5.7); Albumin/Globulin Ratio 1.7 (1.1-2.2); Alkaline Phosphatase 61 Units/L (34-104); Amylase 38 Units/L (29-103); Aspartate Amino Transferase 17 Units/L (13-39); BUN/Creatinine Ratio 8 (6-26); Bilirubin,Direct 0.1 mg/dL (0.0-0.2); Bilirubin,Indirect 0.3 mg/dL (0.0-1.2); Bilirubin,Total 0.4 mg/dL (0.3-1.0); Blood Urea Nitrogen 6 mg/dL (6-20); Calcium 10.1 mg/dL (8.6-10.3); Carbon Dioxide 28 mEq/L (23-29); Chloride 105 mEq/L (98-107); Globulin 2.7 g/dL (2.4-3.5); Glucose 125 mg/dL (70-105); Lipase 30 Units/L (11-82); Osmolality,Calculated 291 (280-300); Potassium 3.8 mEq/L (3.5-5.1); Sodium 141 mEq/L (136-145); Total Protein 7.2 g/dL (6.4-8.9); eGFR For Non-African Americans > 60 (> 60)
--- NOTE | 2018-01-24 13:57 | Emergency Department Note ---
Disposition Clinical Impression: COPD exacerbation Disposition: Admitted As Inpatient Condition: Undetermined Referrals: Naty Cast [Primary Care Provider] - Forms: ED Satisfaction Letter Time of Disposition: 15:43 SOB HPI - General Chief Complaint: ED Chest Pain Stated Complaint: JOSE Time Seen by Provider: 01/24/18 13:03 Source: patient Mode of arrival: ambulatory Limitations: no limitations Nursing Notes Reviewed: Yes Vital Signs Reviewed: Yes - History of Present Illness 57-year-old female complaining of shortness of breath as the past few days. The patient has oxygen prescribed at home but has not been taking it. The patient also states she has no inhalers patient states this feels identical to some exacerbations in the past. The patient denies any fevers, chills. Patient has some associated chest discomfort. She denies any other complaints at this time. She is in mild to moderate respiratory distress. Patient denies any other complaints. - Related Data Home Medications Medication Instructions Recorded Confirmed Aclidinium [place] [Tudorza 1 puff IH BID 11/03/16 03/02/17 Pressair] Albuterol Sulfate [Albuterol 2 puff IH Q4-6H PRN 11/03/16 03/02/17 Inhaler] Cetirizine HCl [Zyrtec] 10 mg PO DAILY 11/03/16 03/02/17 Montelukast [Singulair] 10 mg PO DAILY 11/03/16 03/02/17 Ondansetron HCl [Zofran] 4 - 8 mg PO BID PRN 11/03/16 03/02/17 Paroxetine HCl [Paxil] 40 mg PO DAILY 11/03/16 03/02/17 Tizanidine HCl 4 mg PO Q8H PRN 11/03/16 03/02/17 clonazePAM [Klonopin] 0.5 mg PO TID PRN 11/03/16 03/02/17 Gabapentin [Neurontin] 800 mg PO TID 03/02/17 03/02/17 HYDROcodone/Acet 5/325 mg [Hope 1 tab PO BID PRN 03/02/17 03/02/17 5-325 mg] Previous Rx's Medication Instructions Recorded HYDROcodone/Acet 5/325 mg [Hope 1 tab PO Q6HR PRN #4 tablet 03/05/17 5-325 mg] Omeprazole [PriLOSEC] 40 mg PO BIDAC #60 capsule. 03/05/17 Sucralfate [Carafate] 1 gm PO 0730,1630 #30 tablet 03/05/17 Famotidine [Pepcid] 40 mg PO BID #60 tablet 04/10/17 Allergies Allergy/AdvReac Type Severity Reaction Status Date / Time chlordiazepoxide Allergy See Verified 04/10/17 18:32 [From Librium] Comments Penicillins AdvReac Nausea Verified 04/10/17 18:32 All systems ED: reviewed and negative except as stated. Constitutional: Denies: fever, chills, weakness Eyes: Denies: vision change ENT ED: Denies: dysphagia Cardiovascular: Reports: chest pain, dyspnea on exertion. Denies: edema Respiratory: Reports: cough, dyspnea, wheezes, sputum production Gastrointestinal: Denies: abdominal pain, nausea, vomiting Genitourinary: Denies: urgency, dysuria Musculoskeletal: Denies: back pain, neck pain Integumentary: Denies: rash Neurological: Denies: headache, weakness Past Medical History - Past Medical History Attestation: Yes The following information was validated with the patient. Source: patient, old records reviewed Medical history: Reports: COPD, GERD, migraine, other Surgical history: Reports: orthopedic, other Psychiatric history: Reports: anxiety, depression BATTERY TESTER FIELD history: Reports: no BATTERY TESTER FIELD history - Social History Smoking Status: Current every day smoker Smokeless Tobacco Status: No Alcohol use: Reports: none Drug use: Reports: none Physical Exam - General Limitations: no limitations General appearance: alert, in distress (moderate respiratory) - Head Head exam: atraumatic, normocephalic, normal inspection - Eye Eye exam: Present: normal appearance, PERRL, EOMI - ENT ENT exam: normal exam, normal oropharynx, mucous membranes moist - Neck Neck exam: Present: normal inspection, full ROM, trachea midline - Chest Chest inspection: Present: normal inspection, symmetric chest wall rise - Respiratory Respiratory exam: Present: respiratory distress (mild to moderate), wheezes, accessory muscle use - Cardiovascular Cardiovascular exam: Present: regular rate, normal rhythm - Abdominal Exam Abdominal exam: Present: soft, Non-Tender. Absent: tenderness, distention, guarding, rebound, rigidity - Extremities Exam Extremities exam: Present: normal inspection, full ROM. Absent: tenderness, pedal edema - Neurological Exam Neurological exam: Present: alert, oriented X3 - Skin Skin exam: Present: warm, dry, intact, normal color Course Vital Signs Temperature 98.5 F 01/24/18 13:00 Pulse Rate 66 01/24/18 13:00 Respiratory Rate 20 01/24/18 13:00 Blood Pressure 146/100 01/24/18 13:00 O2 Sat by Pulse Oximetry 97 01/24/18 13:00 Temperature 98.5 F 01/24/18 13:00 Pulse Rate 78 01/24/18 13:42 Respiratory Rate 16 01/24/18 13:42 Blood Pressure 157/97 01/24/18 13:42 O2 Sat by Pulse Oximetry 99 01/24/18 13:42 Oxygen Delivery Oxygen Delivery Room Air Shortness of Breath/Dyspnea - MDM Narrative Medical decision making narrative: Patient's workup in the emergency department demonstrates findings consistent with COPD exacerbation. We will admit the patient to the hospital at this time for further workup and care. Patient made aware and agrees to plan. No further questions or concerns noted this time. Accepted by Dr. Espinal. - Lab Data Lab results reviewed: Yes I reviewed the patient's lab results. Result diagrams: 01/24/18 13:18 01/24/18 13:18 Lab Results 01/24/18 01/24/18 01/24/18 Range/Units 13:18 13:18 13:18 WBC 11.1 (4.3-11.1) K/mcL RBC 4.77 (3.82-4.97) M/mcL Hgb 15.6 H (11.5-15.4) g/dL Hct 45.2 H (35.3-44.9) % MCV 94.8 (83.0-100.0) fL MCH 32.7 (28.0-33.3) pg MCHC 34.5 (31.6-35.5) g/dL RDW 13.9 (11.5-14.5) % Plt Count 299 (140-400) K/mcL MPV 10.9 (9.4-12.4) fL Immature Gran % 0.4 (0-4) % Seg Neutrophils % 85.6 % Lymphocytes % 9.6 % Monocytes % 3.3 % Eosinophils % 0.6 % Basophils % 0.5 % Neutrophils # 9.5 H (1.6-8.9) K/mcL Lymphocytes # 1.1 (0.6-4.6) K/mcL Monocytes # 0.4 (0.0-1.3) K/mcL Eosinophils # 0.1 (0.0-0.6) K/mcL Basophils # 0.1 (0.0-0.2) K/mcL PT 11.5 (9.4-12.1) Seconds INR 1.0 Sodium 141 (136-145) mEq/L Potassium 3.8 (3.5-5.1) mEq/L Chloride 105 (98-107) mEq/L Carbon Dioxide 28 (23-29) mEq/L BUN 6 (6-20) mg/dL Creatinine 0.80 (0.60-1.20) mg/dL Est GFR ( Amer) > 60 (> 60) Est GFR (Non-Af Amer) > 60 (> 60) BUN/Creatinine Ratio 8 (6-26) Glucose 125 H (70-105) mg/dL Calculated Osmolality 291 (280-300) Lactic Acid (0.5-2.2) mmol/L Calcium 10.1 (8.6-10.3) mg/dL Total Bilirubin 0.4 (0.3-1.0) mg/dL Direct Bilirubin 0.1 (0.0-0.2) mg/dL Indirect Bilirubin 0.3 (0.0-1.2) mg/dL AST 17 (13-39) Units/L ALT 18 (7-52) Units/L Alkaline Phosphatase 61 (34-104) Units/L Troponin I < 0.03 (< 0.04) ng/mL Serum Total Protein 7.2 (6.4-8.9) g/dL Albumin 4.5 (3.5-5.7) g/dL Globulin 2.7 (2.4-3.5) g/dL Albumin/Globulin Ratio 1.7 (1.1-2.2) Amylase 38 (29-103) Units/L Lipase 30 (11-82) Units/L Urine Color (Yellow) Urine Clarity (Clear) Urine pH (5.0-8.0) pH Units Ur Specific Star (1.010-1.025) Urine Protein (Neg-Trace) mg/dL Urine Glucose (UA) (Normal) mg/dL Urine Ketones (Negative) mg/dL Urine Blood (Negative) Urine Nitrite (Negative) Urine Bilirubin (Negative) Urine Urobilinogen (Normal) mg/dL Ur Leukocyte Esterase (Negative) Urine Microscopic RBC (0-3) per hpf Urine Microscopic WBC (0-3) per hpf Ur Squamous Epith Cells (None-Few) per lpf Urine Bacteria (None-Few) per hpf Hyaline Casts (None-Few) per lpf Ur Culture Indicated? (NO) 01/24/18 01/24/18 Range/Units 13:43 14:02 WBC (4.3-11.1) K/mcL RBC (3.82-4.97) M/mcL Hgb (11.5-15.4) g/dL Hct (35.3-44.9) % MCV (83.0-100.0) fL MCH (28.0-33.3) pg MCHC (31.6-35.5) g/dL RDW (11.5-14.5) % Plt Count (140-400) K/mcL MPV (9.4-12.4) fL Immature Gran % (0-4) % Seg Neutrophils % % Lymphocytes % % Monocytes % % Eosinophils % % Basophils % % Neutrophils # (1.6-8.9) K/mcL Lymphocytes # (0.6-4.6) K/mcL Monocytes # (0.0-1.3) K/mcL Eosinophils # (0.0-0.6) K/mcL Basophils # (0.0-0.2) K/mcL PT (9.4-12.1) Seconds INR Sodium (136-145) mEq/L Potassium (3.5-5.1) mEq/L Chloride (98-107) mEq/L Carbon Dioxide (23-29) mEq/L BUN (6-20) mg/dL Creatinine (0.60-1.20) mg/dL Est GFR ( Amer) (> 60) Est GFR (Non-Af Amer) (> 60) BUN/Creatinine Ratio (6-26) Glucose (70-105) mg/dL Calculated Osmolality (280-300) Lactic Acid 1.2 (0.5-2.2) mmol/L Calcium (8.6-10.3) mg/dL Total Bilirubin (0.3-1.0) mg/dL Direct Bilirubin (0.0-0.2) mg/dL Indirect Bilirubin (0.0-1.2) mg/dL AST (13-39) Units/L ALT (7-52) Units/L Alkaline Phosphatase (34-104) Units/L Troponin I (< 0.04) ng/mL Serum Total Protein (6.4-8.9) g/dL Albumin (3.5-5.7) g/dL Globulin (2.4-3.5) g/dL Albumin/Globulin Ratio (1.1-2.2) Amylase (29-103) Units/L Lipase (11-82) Units/L Urine Color Yellow (Yellow) Urine Clarity Slightly Hazy (Clear) Urine pH 7.5 (5.0-8.0) pH Units Ur Specific Star 1.014 (1.010-1.025) Urine Protein 30 H (Neg-Trace) mg/dL Urine Glucose (UA) Normal (Normal) mg/dL Urine Ketones 40 H (Negative) mg/dL Urine Blood Negative (Negative) Urine Nitrite Negative (Negative) Urine Bilirubin Negative (Negative) Urine Urobilinogen Normal (Normal) mg/dL Ur Leukocyte Esterase Negative (Negative) Urine Microscopic RBC 3-5 H (0-3) per hpf Urine Microscopic WBC 0-3 (0-3) per hpf Ur Squamous Epith Cells Many H (None-Few) per lpf Urine Bacteria Few (None-Few) per hpf Hyaline Casts None Seen (None-Few) per lpf Ur Culture Indicated? NO (NO) - Radiology Data Radiology results reviewed: Yes I reviewed the patient's radiology results. Abdomen/Pelvis CT 01/24/18 13:26 IMPRESSION: 1. No acute intra-abdominal abnormality. 2. No acute intrapelvic abnormality. 3. No urinary tract calcifications seen. D/ / Nadeem Ramirez MD / Nadeem Ramirez MD Interpreting Provider: Nadeem Ramirez MD Chest X-Ray 01/24/18 14:33 IMPRESSION: No acute process. D/ / Baltazar Kline MD / Baltazar Kline MD Interpreting Provider: Baltazar Kline MD - EKG Data EKG attestation: Yes I reviewed and interpreted this EKG. EKG results narrative: EKG heart rate [address] elevation or ST depression noted. No acute changes noted.
[2018-01-24 14:19] LABS: Bilirubin,Urine Negative (Negative); Blood,Urine Negative (Negative); Color,Urine Yellow (Yellow); Glucose,Urine (UA) Normal (Normal); Ketones,Urine 40 mg/dL (Negative); Leukocyte Esterase,Urine Negative (Negative); Nitrite,Urine Negative (Negative); PH,Urine 7.5 pH Units (5.0-8.0); Protein,Urine 30 mg/dL (Neg-Trace); Specific Gravity,Urine 1.014 (1.010-1.025); Urobilinogen,Urine Normal (Normal)
[2018-01-24 14:21] LABS: Bacteria,Urine Few per hpf (None-Few); Hyaline Casts,Urine None Seen per lpf (None-Few); Squamous Epithelial Cell,Urine Many per lpf (None-Few); WBC,Urine 0-3 per hpf (0-3)
[2018-01-24 14:22] LABS: Clarity,Urine Slightly Hazy (Clear)
[2018-01-24] MEDS ORDERED: Azithromycin 500 MG in D5% in Water 250 ML IVPB ONE (15:36)
[2018-01-24] MEDS ORDERED: Naloxone 0.4 MG/ML INJ IVP PRN (16:18)
[2018-01-24] MEDS ORDERED: *HR* LORazepam 2 MG/ML VIAL IVP ONE (16:19)
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
[2018-01-24] MEDS: Sucralfate 1 GM TABLET PO SCH ×2 (18:32→20:37)
[2018-01-24] MEDS: Nicotine 21 MG PATCH.TD24 TD SCH (18:33)
[2018-01-24] MEDS: Ondansetron 4 MG/2 ML VIAL IVP PRN (18:44)
[2018-01-24] MEDS: Ipratropium/Albuterol Neb 3 ML IH SCH ×2 (18:55→23:08)
[2018-01-24] MEDS: Famotidine 20 MG TABLET PO SCH (20:37)
[2018-01-24] MEDS: Acetaminophen 325 MG TABLET PO PRN (21:05)
[2018-01-24] MEDS: Budesonide/Formoterol 160/4.5 1 PUFF INH IH SCH (23:08)
[2018-01-25] MEDS: *HR* LORazepam 2 MG/ML VIAL IVP PRN ×3 (02:55→17:49)
[2018-01-25] MEDS: Acetaminophen 325 MG TABLET PO PRN ×2 (03:08→20:36)
[2018-01-25] MEDS: Ipratropium/Albuterol Neb 3 ML IH SCH ×4 (04:06→22:28)
[2018-01-25] MEDS: *HR* Enoxaparin 40 MG/0.4 ML SYRINGE SQ SCH (05:53)
[2018-01-25 06:28] LABS: Basophils % 0.1 %; Eosinophils % 0.1 %; Hematocrit 37.9 % (35.3-44.9); Immature Granulocytes % 0.5 % (0-4); Lymphocytes # 1.9 K/mcL (0.6-4.6); Lymphocytes % 12.7 %; Mean Corpuscular HGB Conc 33.5 g/dL (31.6-35.5); Mean Corpuscular Hemoglobin 32.3 pg (28.0-33.3); Mean Corpuscular Volume 96.4 fL (83.0-100.0); Mean Platelet Volume 11.3 fL (9.4-12.4); Monocytes % 7.1 %; Neutrophils # 11.6 K/mcL (1.6-8.9); Platelet Count 263 K/mcL (140-400); Red Blood Count 3.93 M/mcL (3.82-4.97); Red Cell Distribution Width 14.2 % (11.5-14.5); Segmented Neutrophils % 79.5 %
[2018-01-25 06:29] LABS: Hemoglobin 12.7 g/dL (11.5-15.4)
[2018-01-25] MEDS ORDERED: NON-FORMULARY MEDICATION 1 EACH EACH (Fluticasone/Vilanterol [Breo Ellipta 100-25 Mcg Inh] IH SCH (09:00)
--- NOTE | 2018-01-25 10:00 | Internal Med Progress Note ---
Hospitalist Progress Note - Encounter Date of Encounter: 01/25/18 Time of Encounter: 10:00 - Subjective Interval History: Patient seen and examined at bedside. She states that her breathing has improved however she cont to experience N/V despite antiemetic. She also has epigastric pain and is unable to tolerate oral intake. - Exam Vitals: Temp Pulse Resp BP Pulse Ox 99.0 F 56 14 134/78 95 01/25/18 06:50 01/25/18 06:50 01/25/18 06:50 01/25/18 06:50 01/25/18 06:50 Exam: Constitutional Constitutional: no chills, no fever(s), no night sweats - EENT Eyes: no change in vision, no discharge, no pain, no photophobia Nose, mouth and throat: no dysphagia, no nasal discharge, no neck pain, no sore throat - Cardiovascular Cardiovascular ROS IM: no chest pain, no diaphoresis, no dyspnea, no lightheadedness, no palpitations, no syncope - Respiratory Respiratory: cough lung sounds CTA - Gastrointestinal Gastrointestinal: epigastric , nausea, vomiting-no diarrhea - Genitourinary Genitourinary: no change in urinary stream, no dysuria, no flank pain, no hematuria - Musculoskeletal Musculoskeletal ROS IM: no numbness, no tingling - Integumentary Integumentary IM: no rash, no unusual bruising - Neurological Neurological ROS: no confusion, no convulsions, no focal weakness, no numbness, no tingling, no tremor(s) - Psychiatric Psychiatric: anxiety - Assessment and Plan (1) COPD exacerbation Current Visit: Yes Status: Acute Assessment and Plan: 1 chest x-ray with no acute process history of COPD-she has oxygen but has not been using at home- resp states improved- currently on RA oxygen support as needed titrating maintaining asking to greater than 92% Continue with prednisone 40 mg daily Continue with Zithromax daily Obtain sputum culture Continue bronchodilators (2) Anxiety disorder, unspecified Current Visit: No Status: Acute Assessment and Plan: has history of anxiety we will continue with Paxil Ativan as needed (3) Nausea & vomiting Current Visit: No Status: Acute Assessment and Plan: 1 patient has been experiencing nausea and vomiting for the past few days. She does smoke marijuana which could be a contributory factor.- Zofran for nausea (4) Marijuana abuse Current Visit: No Status: Chronic Assessment and Plan: Patient uses marijuana frequently she last smoked marijuana approximately 2 days ago-advised patient to stop smoking-this could possibly be contributing to her nausea and vomiting (5) Smoking Current Visit: No Status: Chronic Assessment and Plan: Encouraged patient to stop smoking we will give nicotine patch (6) Epigastric abdominal pain Current Visit: Yes Status: Acute Assessment and Plan: Patient has a history of duodenitis. He did have a GI bleed approximately one year ago- H?H stable at this time 12.7/37.9 Obtain stool for occult blood Continue with PPI and Carafate Consult GI as needed (7) DVT prophylaxis Current Visit: No Status: Acute Assessment and Plan: Lovenox subcutaneous - Time Spent with Patient Total time spent is greater than 50% in coordination of care (as documented) at patient's floor/unit and/or counseling patient: Internal Medicine: Result - Labs CBC & Chem 7: 01/25/18 05:41 01/24/18 13:18 Labs: Short CBC 01/25/18 Range/Units 05:41 WBC 14.6 H (4.3-11.1) K/mcL Hgb 12.7 D (11.5-15.4) g/dL Hct 37.9 (35.3-44.9) % Plt Count 263 (140-400) K/mcL Neutrophils # 11.6 H (1.6-8.9) K/mcL - ABG Interpretation ABG results: PT/INR, D-dimer PT 11.5 Seconds (9.4-12.1) 01/24/18 13:18 Consult Discharge Plan - Plan Referrals: Naty Cast [Primary Care Provider] - (2) Anxiety disorder, unspecified Qualifiers: Anxiety disorder type: panic disorder without agoraphobia Qualified Code(s): F41.0 - Panic disorder [episodic paroxysmal anxiety] (3) Nausea & vomiting Qualifiers: Vomiting type: cyclical vomiting Vomiting Intractability: unspecified Qualified Code(s): G43.A0 - Cyclical vomiting, not intractable
[2018-01-25] MEDS: Budesonide/Formoterol 160/4.5 1 PUFF INH IH SCH ×2 (10:48→22:28)
[2018-01-25] MEDS: Nicotine 21 MG PATCH.TD24 TD SCH (10:56)
[2018-01-25] MEDS: predniSONE 20 MG TABLET PO SCH (10:56)
[2018-01-25] MEDS: Sucralfate 1 GM TABLET PO SCH ×4 (10:56→20:36)
[2018-01-25] MEDS: Famotidine 20 MG TABLET PO SCH ×2 (10:57→20:36)
[2018-01-25] MEDS: cloNIDine HCl 0.1 MG TABLET PO SCH (10:57)
[2018-01-25 14:02] LABS: BUN/Creatinine Ratio 12 (6-26); Blood Urea Nitrogen 9 mg/dL (6-20); Calcium 9.3 mg/dL (8.6-10.3); Carbon Dioxide 29 mEq/L (23-29); Chloride 105 mEq/L (98-107); Glucose 138 mg/dL (70-105); Osmolality,Calculated 291 (280-300); Potassium 2.8 mEq/L (3.5-5.1); Sodium 140 mEq/L (136-145); eGFR For Non-African Americans > 60 (> 60)
[2018-01-25] MEDS: *HR* HYDROcodone/Acet 5/325 mg TABLET PO PRN ×2 (15:05→21:59)
--- NOTE | 2018-01-25 17:48 | Electrocardiograph Report ---
[place] [id number] Test Date: 2018-01-24 Pat Name: Joya Clark Department: Room: 3B Gender: F [place]: : 1960 Requested By: Tarsha See Order Number: [id number] Reading MD: Cami Bejarano Measurements Intervals [place] Rate: 79 P: 82 NH: 159 QRS: 96 QRSD: 86 T: 73 QT: 422 QTc: 484 Interpretive Statements Sinus rhythm Borderline right axis deviation Electronically Signed On 01-25-2018 17:46:26 EDT by Cami Bejarano
[2018-01-25] MEDS: Azithromycin 500 MG in D5% in Water 250 ML IVPB SCH (17:50)
[2018-01-25] MEDS: tiZANidine 4 MG TABLET PO PRN (20:36)
[2018-01-26] MEDS: *HR* LORazepam 2 MG/ML VIAL IVP PRN ×3 (03:22→18:38)
[2018-01-26] MEDS: Ipratropium/Albuterol Neb 3 ML IH SCH ×4 (04:20→22:35)
[2018-01-26] MEDS: *HR* Enoxaparin 40 MG/0.4 ML SYRINGE SQ SCH (05:59)
[2018-01-26] MEDS: *HR* HYDROcodone/Acet 5/325 mg TABLET PO PRN ×3 (05:59→21:14)
[2018-01-26 06:11] LABS: Basophils % 0.1 %; Eosinophils # 0.1 K/mcL (0.0-0.6); Eosinophils % 0.4 %; Hematocrit 35.6 % (35.3-44.9); Hemoglobin 12.2 g/dL (11.5-15.4); Immature Granulocytes % 0.4 % (0-4); Lymphocytes # 2.8 K/mcL (0.6-4.6); Lymphocytes % 20.7 %; Mean Corpuscular HGB Conc 34.3 g/dL (31.6-35.5); Mean Corpuscular Volume 93.4 fL (83.0-100.0); Mean Platelet Volume 10.9 fL (9.4-12.4); Monocytes % 7.5 %; Neutrophils # 9.5 K/mcL (1.6-8.9); Platelet Count 269 K/mcL (140-400); Red Blood Count 3.81 M/mcL (3.82-4.97); Red Cell Distribution Width 14.6 % (11.5-14.5); Segmented Neutrophils % 70.9 %
[2018-01-26 06:28] LABS: BUN/Creatinine Ratio 17 (6-26); Blood Urea Nitrogen 12 mg/dL (6-20); Calcium 9.2 mg/dL (8.6-10.3); Carbon Dioxide 27 mEq/L (23-29); Chloride 105 mEq/L (98-107); Glucose 118 mg/dL (70-105); Osmolality,Calculated 291 (280-300); Potassium 3.1 mEq/L (3.5-5.1); Sodium 140 mEq/L (136-145); eGFR For Non-African Americans > 60 (> 60)
[2018-01-26] MEDS ORDERED: Potassium Chloride 20 MEQ, Lidocaine 1% 2 ML in D5% in Water 250 ML IVPB ONE (07:43)
[2018-01-26] MEDS: cloNIDine HCl 0.1 MG TABLET PO SCH (09:56)
[2018-01-26] MEDS: predniSONE 20 MG TABLET PO SCH (09:56)
[2018-01-26] MEDS: Famotidine 20 MG TABLET PO SCH ×2 (09:56→20:05)
[2018-01-26] MEDS: Sucralfate 1 GM TABLET PO SCH ×4 (09:56→20:05)
[2018-01-26] MEDS: Nicotine 21 MG PATCH.TD24 TD SCH (09:57)
--- NOTE | 2018-01-26 10:08 | Internal Med Progress Note ---
Hospitalist Progress Note - Encounter Date of Encounter: 01/26/18 Time of Encounter: 10:08 - Subjective Interval History: Patient seen and examined at bedside. She states that her breathing has improved however she cont to experience epigastric pain. Patient is nothing by mouth awaiting EGD per GI - Exam Vitals: Temp Pulse Resp BP Pulse Ox 98.1 F 75 20 136/87 93 01/26/18 06:51 01/26/18 06:51 01/26/18 06:51 01/26/18 06:51 01/26/18 06:51 Exam: Constitutional Constitutional: no chills, no fever(s), no night sweats - EENT Eyes: no change in vision, no discharge, no pain, no photophobia Nose, mouth and throat: no dysphagia, no nasal discharge, no neck pain, no sore throat - Cardiovascular Cardiovascular ROS IM: no chest pain, no diaphoresis, no dyspnea, no lightheadedness, no palpitations, no syncope - Respiratory Respiratory: cough lung sounds CTA - Gastrointestinal Gastrointestinal: epigastric pain , nausea, vomiting-no diarrhea - Genitourinary Genitourinary: no change in urinary stream, no dysuria, no flank pain, no hematuria - Musculoskeletal Musculoskeletal ROS IM: no numbness, no tingling - Integumentary Integumentary IM: no rash, no unusual bruising - Neurological Neurological ROS: no confusion, no convulsions, no focal weakness, no numbness, no tingling, no tremor(s) - Psychiatric Psychiatric: anxiety - Assessment and Plan (1) COPD exacerbation Current Visit: Yes Status: Acute Assessment and Plan: 1 chest x-ray with no acute process history of COPD-she has oxygen but has not been using at home- resp states improved- currently on RA oxygen support as needed titrating maintaining asking to greater than 92% Continue with prednisone 40 mg daily Continue with Zithromax daily Obtain sputum culture Continue bronchodilators (2) Anxiety disorder, unspecified Current Visit: No Status: Acute Assessment and Plan: has history of anxiety we will continue with Paxil Ativan as needed (3) Nausea & vomiting Current Visit: No Status: Acute Assessment and Plan: 1 patient has been experiencing nausea and vomiting for the past few days. She does smoke marijuana which could be a contributory factor.- Zofran for nausea (4) Marijuana abuse Current Visit: No Status: Chronic Assessment and Plan: Patient uses marijuana frequently she last smoked marijuana approximately 2 days ago-advised patient to stop smoking-this could possibly be contributing to her nausea and vomiting (5) Smoking Current Visit: No Status: Chronic Assessment and Plan: Encouraged patient to stop smoking we will give nicotine patch (6) Epigastric abdominal pain Current Visit: Yes Status: Acute Assessment and Plan: Patient has a history of duodenitis. He did have a GI bleed approximately one year ago- H?H stable at this time 12.7/37.9 Obtain stool for occult blood Continue with PPI and Carafate Consult GI -patient will be nothing by mouth for EGD (7) DVT prophylaxis Current Visit: No Status: Acute Assessment and Plan: Lovenox subcutaneous - Time Spent with Patient Total time spent is greater than 50% in coordination of care (as documented) at patient's floor/unit and/or counseling patient: Internal Medicine: Result - Labs CBC & Chem 7: 01/26/18 05:33 01/26/18 05:33 Labs: Short CBC 01/26/18 Range/Units 05:33 WBC 13.4 H (4.3-11.1) K/mcL Hgb 12.2 (11.5-15.4) g/dL Hct 35.6 (35.3-44.9) % Plt Count 269 (140-400) K/mcL Neutrophils # 9.5 H (1.6-8.9) K/mcL BMP 01/25/18 01/26/18 13:17 05:33 Sodium 140 140 Potassium 2.8 L D 3.1 L Chloride 105 105 Carbon Dioxide 29 27 BUN 9 12 Creatinine 0.75 0.69 Glucose 138 H 118 H Calcium 9.3 9.2 - ABG Interpretation ABG results: PT/INR, D-dimer PT 11.5 Seconds (9.4-12.1) 01/24/18 13:18 Consult Discharge Plan - Plan Referrals: Naty Cast [Primary Care Provider] - (2) Anxiety disorder, unspecified Qualifiers: Anxiety disorder type: panic disorder without agoraphobia Qualified Code(s): F41.0 - Panic disorder [episodic paroxysmal anxiety] (3) Nausea & vomiting Qualifiers: Vomiting type: cyclical vomiting Vomiting Intractability: unspecified Qualified Code(s): G43.A0 - Cyclical vomiting, not intractable
[2018-01-26] MEDS: Acetaminophen 325 MG TABLET PO PRN (10:11)
[2018-01-26] MEDS: Budesonide/Formoterol 160/4.5 1 PUFF INH IH SCH ×2 (10:42→22:35)
[2018-01-26] MEDS: Ondansetron 4 MG/2 ML VIAL IVP PRN (15:09)
--- NOTE | 2018-01-26 15:25 | Gastroenterology Consult Note ---
<Baltazar Quinn - Last Filed: 01/26/18 15:23> Date of Encounter: 01/26/18 Time of Encounter: 11:30 - Assessment and plan (1) Marijuana abuse Current Visit: No Status: Chronic Assessment and plan: Encouraged patient to stop smoking marijuana. (2) Nausea & vomiting Current Visit: No Status: Acute Assessment and plan: Likely secondary to chronic marijuana use. Plan for EGD today. Qualifiers: Vomiting type: cyclical vomiting Vomiting Intractability: unspecified Qualified Code(s): G43.A0 - Cyclical vomiting, not intractable (3) Epigastric abdominal pain Current Visit: Yes Status: Acute Assessment and plan: Continue PPI and plan for EGD today to r/o esophagitis, gastritis, duodenitis, PUD, MW tear, or AVM. Keep NPO for scopes. - Time Spent With Patient Total time spent is greater than 50% in coordination of care (as documented) at patient's floor/unit and/or counseling patient: GI History of Present Illness - Data of Consult Patient: known to practice within the last 3 years Consult date: 01/26/18 Requesting Physician: Kehinde Espinal MD - Consult Narrative Reason for consult: Abdominal pain, nausea, vomiting History of present illness: Ms. Clark is a 57 year old female with PMHx of COPD, GERD, migraine, GI bleed who presented to the ED with c/o shortness of breath, epigastric pain, nausea, vomiting, and diarrhea. She denies fever, chills, chest pain, hematemesis, hematochezia, or melena. CT A/P with no acute abnormalities. Nausea and vomiting have not improved despite antiemetic. She does use marijuana frequently , which could be contributing to her nausea and vomiting. Patient disagrees that marijuana is couseing her nausea/vomiting and states that her "body works in reverse". Procedures: EGD 03/04/2017 Dr. Miller: Non-bleeding gastric ulcer, gastritis. NSAIDs: Meloxicam Anticoagulation: None Past Med Surg Social Fam HX - Past Medical History Medical history: COPD, GERD, migraine, other Additional medical history: PEPTIC ULCERS Psychiatric history: anxiety, depression - Past Surgical History Surgical History: orthopedic, other Additional surgical history: surgery on compound fractures in left leg in 1979. TUMOR REMOVED FROM NECK. - Social History Smoking Status: Current every day smoker Packs per day: 1/2-1 Smokeless Tobacco Status: No Alcohol use: none Drug use: none - Family History Mother Family Member Ethnicity: Non- Living Status: Age at : 85 Hx Family Cardiac Disorders: No Hx Family Respiratory Disorders: No Hx Family Cancer: No Hx Family GI Disorders: No Hx Family Endocrine Disorder: No Hx Family Neuromuscular Disorders: No Hx Family Neurologic Disorders: Yes (Alzheimer's Disease) Hx Family HEENT Disorders: No Hx Family Autoimmune Disorders: No Father Family Member Ethnicity: Non- Living Status: Still Living Hx Family Cardiac Disorders: Yes (Aunt heart attack) Hx Family Respiratory Disorders: No Hx Family Cancer: Yes (Uncle inoperable cancer) Hx Family GI Disorders: No Hx Family Endocrine Disorder: No Hx Family Neuromuscular Disorders: Yes (grandma Parkinson's) Hx Family Neurologic Disorders: No Hx Family HEENT Disorders: No Hx Family Autoimmune Disorders: No - Gastrointestinal Gastrointestinal: Present: as per HPI - Constitutional Constitutional: as per HPI - EENT Eyes: as per HPI Ears: Present: as per HPI Nose, mouth and throat: Present: as per HPI - Cardiovascular Cardiovascular ROS: Present: as per HPI - Respiratory Respiratory IM: Present: as per HPI - Genitourinary Genitourinary: Absent: change in color, Urinary frequency - Neurological ROS Neurological GI: Present: as per HPI - Hematologic/Lymphatic Hematologic/Lymphatic pediatric: Present: as per HPI - Musculoskeletal Musculoskeletal ROS GI: Present: as per HPI - Integumentary Integumentary GI: Present: as per HPI - Psychiatric ROS Psychiatric GI: Present: as per HPI - Endocrine Endocrine IM: Present: as per HPI - Constitutional Vitals: Temp Pulse Resp BP Pulse Ox 98.4 F 75 18 140/88 96 01/26/18 11:05 01/26/18 11:05 01/26/18 11:05 01/26/18 11:05 01/26/18 11:05 General appearance: Present: cooperative, A&O X 3, no acute distress, answers questions appropriately - Head Head exam: Present: atraumatic, normocephalic - Eye Eye exam: Present: normal appearance, sclera anicteric - ENT ENT exam: Present: mucous membranes dry - Neck Neck exam general surgery: Present: normal inspection, trachea midline - Respiratory Respiratory exam: Present: decreased breath sounds, CTAB. Absent: rales, rhonchi - Cardiovascular Cardiovascular exam: Present: RRR, +S1, +S2 - GI/Abdominal GI/Abdominal exam: Present: soft, tenderness (epigastric), no peritoneal signs. Absent: distended, firm, guarding - Rectal Rectal exam: Present: deferred - Extremities Exam Extremities exam: Present: warm - Neurological Exam Neurological exam: Present: no focal deficits - Psychiatric Psychiatric exam: Present: normal affect, normal mood - Skin Skin exam: Present: dry, intact, normal color, warm Results - Labs CBC & Chem 7: 01/26/18 05:33 01/26/18 05:33 Labs: Last Result Calcium 9.2 mg/dL (8.6-10.3) 01/26/18 05:33 Troponin I < 0.03 ng/mL (< 0.04) 01/24/18 13:18 Stool Occult Blood Negative (Negative) 01/25/18 11:20 Entire Visit Hgb 12.2 g/dL (11.5-15.4) 01/26/18 05:33 Hct 35.6 % (35.3-44.9) 01/26/18 05:33 PT 11.5 Seconds (9.4-12.1) 01/24/18 13:18 Total Bilirubin 0.4 mg/dL (0.3-1.0) 01/24/18 13:18 AST 17 Units/L (13-39) 01/24/18 13:18 ALT 18 Units/L (7-52) 01/24/18 13:18 Amylase 38 Units/L (29-103) 01/24/18 13:18 Lipase 30 Units/L (11-82) 01/24/18 13:18 - ABG ABG results: PT/INR, D-dimer PT 11.5 Seconds (9.4-12.1) 01/24/18 13:18 Consult Discharge Plan - Plan Referrals: Naty Cast [Primary Care Provider] - <Iván Miller - Last Filed: 01/26/18 17:52> Date of Encounter: 01/26/18 Time of Encounter: 17:00 - Time Spent With Patient Total time spent is greater than 50% in coordination of care (as documented) at patient's floor/unit and/or counseling patient: GI History of Present Illness - Data of Consult Requesting Physician: Kehinde Espinal MD - Consult Narrative History of present illness: Ms. Clark is a 57 year old female - Constitutional Vitals: Temp Pulse Resp BP Pulse Ox 98.9 F 99 16 160/80 95 01/26/18 16:51 01/26/18 17:25 01/26/18 17:25 01/26/18 17:25 01/26/18 17:25 Results - Labs CBC & Chem 7: 01/26/18 05:33 01/26/18 05:33 Labs: Last Result Calcium 9.2 mg/dL (8.6-10.3) 01/26/18 05:33 Troponin I < 0.03 ng/mL (< 0.04) 01/24/18 13:18 Stool Occult Blood Negative (Negative) 01/25/18 11:20 Entire Visit Hgb 12.2 g/dL (11.5-15.4) 01/26/18 05:33 Hct 35.6 % (35.3-44.9) 01/26/18 05:33 PT 11.5 Seconds (9.4-12.1) 01/24/18 13:18 Total Bilirubin 0.4 mg/dL (0.3-1.0) 01/24/18 13:18 AST 17 Units/L (13-39) 01/24/18 13:18 ALT 18 Units/L (7-52) 01/24/18 13:18 Amylase 38 Units/L (29-103) 01/24/18 13:18 Lipase 30 Units/L (11-82) 01/24/18 13:18 - ABG ABG results: PT/INR, D-dimer PT 11.5 Seconds (9.4-12.1) 01/24/18 13:18 - Attending Attestation I have personally performed a face to face evaluation on this patient. I have reviewed and agree with the care plan. History and Exam by me shows: Patient seen patient with the complaint of epigastric pain along with the recurrent vomiting does has use of marijuana. Exam: does has mild epigastric tenderness Symptoms are concerning for cyclic vomiting. Rec: EGD to rule out upper GI causes for her symptoms such as gastritis/peptic ulcer disease versus H. pylori
[2018-01-26] MEDS ORDERED: *HR* Midazolam HCl 5 MG/5 ML VIAL IVP ONE ×2 (16:52→17:17)
[2018-01-26] MEDS ORDERED: *HR* FentaNYL (PF) 100 MCG/2 ML VIAL ONE (16:52)
[2018-01-26] MEDS ORDERED: Tetracaine/Benzocaine/Butamben 200MG/SPRAY (100SPY/BOT) MM ONE (17:17)
[2018-01-26] MEDS ORDERED: *HR* FentaNYL (PF) 100 MCG/2 ML VIAL IVP ONE (17:17)
[2018-01-26] MEDS ORDERED: Simethicone 40 MG/0.6 ML MLS IR ONE (17:17)
--- NOTE | 2018-01-26 17:18 | Pre-Sedation Evaluation ---
Pre-sedation evaluation - Pre-sedation checklist Date of procedure: 01/26/18 Procedure: EGD Recent Vitals: Last Vital Signs Temp 98.9 F 01/26/18 16:51 Pulse 80 01/26/18 17:15 Resp 18 01/26/18 17:15 BP 118/70 01/26/18 17:15 Pulse Ox 97 01/26/18 17:15 H&P (including ROS) documented in medical record: Yes Previous reaction to sedatives/anesthetics: No Dietary Status: NPO after Midnight Dentition: dentures removed ASA Classification *see protocol: CLASS II-Mild systemic disease Plan of Care: Pt appropriate candidate for procedure/moderate/conscious sedation , Risks/benefits of procedure/sedation discussed w/ patient/family Cardiac Registry (Cardio Only) - Functional Capacity - Clincal Frailty Scale
[2018-01-26] MEDS: Azithromycin 500 MG in D5% in Water 250 ML IVPB SCH (18:35)
[2018-01-27] MEDS: *HR* LORazepam 2 MG/ML VIAL IVP PRN ×2 (00:44→06:34)
[2018-01-27] MEDS: Ipratropium/Albuterol Neb 3 ML IH SCH (03:52)
[2018-01-27] MEDS: *HR* HYDROcodone/Acet 5/325 mg TABLET PO PRN ×2 (04:08→10:19)
[2018-01-27 05:30] LABS: Basophils % 0.2 %; Eosinophils # 0.1 K/mcL (0.0-0.6); Eosinophils % 0.6 %; Hematocrit 36.3 % (35.3-44.9); Hemoglobin 12.1 g/dL (11.5-15.4); Immature Granulocytes % 0.5 % (0-4); Lymphocytes # 2.8 K/mcL (0.6-4.6); Lymphocytes % 22.8 %; Mean Corpuscular HGB Conc 33.3 g/dL (31.6-35.5); Mean Corpuscular Hemoglobin 32.5 pg (28.0-33.3); Mean Corpuscular Volume 97.6 fL (83.0-100.0); Mean Platelet Volume 11.3 fL (9.4-12.4); Monocytes % 8.3 %; Neutrophils # 8.4 K/mcL (1.6-8.9); Platelet Count 263 K/mcL (140-400); Red Blood Count 3.72 M/mcL (3.82-4.97); Red Cell Distribution Width 14.7 % (11.5-14.5); Segmented Neutrophils % 67.6 %
[2018-01-27 05:53] LABS: BUN/Creatinine Ratio 14 (6-26); Blood Urea Nitrogen 11 mg/dL (6-20); Calcium 9.1 mg/dL (8.6-10.3); Carbon Dioxide 28 mEq/L (23-29); Chloride 105 mEq/L (98-107); Glucose 109 mg/dL (70-105); Osmolality,Calculated 290 (280-300); Potassium 3.2 mEq/L (3.5-5.1); Sodium 140 mEq/L (136-145); eGFR For Non-African Americans > 60 (> 60)
[2018-01-27] MEDS: *HR* Enoxaparin 40 MG/0.4 ML SYRINGE SQ SCH (06:34)
[2018-01-27 07:06] VITALS: BP 127/87
[2018-01-27] MEDS: Ondansetron 4 MG/2 ML VIAL IVP PRN (09:04)
[2018-01-27] MEDS: Sucralfate 1 GM TABLET PO SCH (09:05)
[2018-01-27] MEDS: predniSONE 20 MG TABLET PO SCH (09:05)
[2018-01-27] MEDS: tiZANidine 4 MG TABLET PO PRN (09:05)
[2018-01-27] MEDS: Famotidine 20 MG TABLET PO SCH (09:05)
[2018-01-27] MEDS: cloNIDine HCl 0.1 MG TABLET PO SCH (09:05)
[2018-01-27] MEDS: Nicotine 21 MG PATCH.TD24 TD SCH (09:05)
--- NOTE | 2018-01-27 10:33 | Discharge Summary ---
- NOTES TO OUTPATIENT PROVIDER Notes to Outpatient Provider: Had EGD which did show gastritis- advised to continue home prilosec carafate and zantac. COPD excerbation- zithromax for 3 more days, steroid taper advised to stop smoking - both marijuana and cigarettes -given nicotine patches Orders not resulted at time of discharge: Pending orders 01/26/18 17:28 Surgical Pathology [PTH] Routine 01/28/18 04:00 Chem 7 [Basic Metabolic Panel] AM 0400 Date of Encounter: 01/27/18 Time of Encounter: 10:27 - Discharge Diagnosis (1) COPD exacerbation Priority: Primary Status: Acute (2) Anxiety disorder, unspecified Priority: Secondary Status: Acute Qualifiers: Anxiety disorder type: panic disorder without agoraphobia Qualified Code(s) : F41.0 - Panic disorder [episodic paroxysmal anxiety] (3) Nausea & vomiting Priority: Secondary Status: Acute Qualifiers: Vomiting type: cyclical vomiting Vomiting Intractability: unspecified Qualified Code(s): G43.A0 - Cyclical vomiting, not intractable (4) Marijuana abuse Priority: Secondary Status: Chronic (5) Smoking Priority: Secondary Status: Chronic (6) Epigastric abdominal pain Priority: Secondary Status: Acute Hospital course: Ms. Clark is a 57 year old female past medical hx of COPD and GI bleed- current smoker. Presented to [facility] with complaints of SOB and as well as epigastric pain N/V over the past 3-4 days. She does have home O2 however does not use it dt fear of catching on fire, because she smokes. She has alot of anxiety and request something for nerves several times during admission Lab work did show an elevated white count CXR with no acute process EKG SR - with no ST T wave abnormalities. She was given steroids, bronchiodilators and Azithromycin . She continued to complain of abd pain N/V she underwent EGD which did show some gastritis - She is currently on carafate and PPI which we will continue. Advised patient to stop smoking marijuana as well as cigarettes, she verbalized understanding and requested to be discharged on ativan and pain medication. Advised that she did not require prescription for pain medication and anxiety medications will need to be precribed by PCP so that she can monitord as well as she smokes marijuana frequently. I gave the patient prescription for prednison zithromax and nicotine patch. Advised to follow up with PCP She is hemodynamically stable tolerating food with stable resp state She is ready for discharge Discharge discussed with: patient - Time Spent with Patient Total time spent providing and/or coordinating discharge services: - Discharge Medications Prescriptions: Azithromycin 250 mg PO DAILY #3 tablet Nicotine Patch [Nicoderm] 21 mg TD DAILY #20 patch.td24 predniSONE [PredniSONE] 10 mg PO DAILY #15 tablet Home Medications: Albuterol Sulfate [Albuterol Inhaler] 2 puff IH Q4-6H PRN 11/03/16 [History] Cetirizine HCl [Zyrtec] 10 mg PO DAILY 11/03/16 [History] Paroxetine HCl [Paxil] 40 mg PO DAILY 11/03/16 [History] Tizanidine HCl 4 mg PO Q8H PRN 11/03/16 [History] Amitriptyline [Elavil] 10 mg PO HS 01/24/18 [History] Fluticasone/Vilanterol [Breo Ellipta 100-25 Mcg INH] 2 puff IH DAILY 01/24/18 [ History] Meloxicam 15 mg PO DAILY 01/24/18 [History] Omeprazole [PriLOSEC] 40 mg PO DAILY 01/24/18 [History] Sucralfate [Carafate] 1 gm PO QID 01/24/18 [History] cloNIDine HCl [CloNIDine HCl] 0.1 mg PO DAILY 01/24/18 [History] raNITIdine HCl [Zantac] 150 mg PO BID 01/24/18 [History] Azithromycin 250 mg PO DAILY #3 tablet 01/27/18 [Rx] Nicotine Patch [Nicoderm] 21 mg TD DAILY #20 patch.td24 01/27/18 [Rx] predniSONE [PredniSONE] 10 mg PO DAILY #15 tablet 01/27/18 [Rx] Allergies/Adverse Reactions: 3 Allergy/AdvReac Type Severity Reaction Status Date / Time chlordiazepoxide Allergy See Verified 04/10/17 18:32 [From Librium] Comments Penicillins AdvReac Nausea Verified 04/10/17 18:32 Date of admission: 01/24/18 15:55 Primary care physician: Naty Cast Consults: 01/24/18 16:18 Consult to Nurse Navigator [CONS] Routine Comment: 01/25/18 13:19 Consult to Gastroenterology [CONS] Routine Consulting Provider: Gastroenterology Nikkie Reason for Consult: abd pain n/v - hx duodenitis Time Notified: 13:20 Call Completed: Yes Discharging clinician: Sondra Zhao Anticipated date of discharge: 01/27/18 - Constitutional Vitals: Temp Pulse Resp BP Pulse Ox 98.5 F 85 20 127/87 94 01/27/18 07:01 01/27/18 07:01 01/27/18 07:01 01/27/18 07:01 01/27/18 07:01 General appearance: Present: A&O X 3 - Head Head exam: Present: atraumatic, normocephalic - Eye Eye exam: Present: PERRL, conjuntiva pink, sclera anicteric Pupils: Present: PERRL - Neck Neck exam general surgery: Present: supple, trachea midline. Absent: lymphadenopathy - Respiratory Respiratory exam: Present: CTAB. Absent: accessory muscle use, rales, rhonchi, wheezes - Cardiovascular Cardiovascular exam: Present: RRR, +S1, +S2. Absent: diastolic murmur, gallop, rubs, systolic murmur - GI/Abdominal GI/Abdominal exam: Present: normal bowel sounds, soft, no peritoneal signs. Absent: distended, tenderness - Extremities Exam Extremities exam: Present: warm, radial pulses palpable and symmetrical. Absent : calf tenderness, cyanotic, pedal edema - Neurological Exam Neurological exam: Present: CN II-XII intact, oriented X3, no focal deficits. Absent: pronater drift, facial droop, speech deficit - Skin Skin exam: Present: dry, intact - Patient Status Disposition: Home, Self-Care Condition: Good Functional capacity at discharge: independent ambulation Overall status at discharge: patient is back to baseline - Discharge Instructions Instructions: Prednisone (By mouth), Azithromycin (By mouth), Nicotine ( Absorbed through the skin), Gastritis (DC), Chronic Obstructive Pulmonary Disease (DC) Follow Up With: Naty Cast [Primary Care Provider] - 02/10/18 8:20 am - Diet and Activity Activity: increase activity as tolerated Diet: advance to your usual diet
== END 2018-01-27 10:48 | disposition home or self-care (01) ==
LOC: EMEROOARM 12:27 → 3BNU 12:27
PROVIDERS: ADMIT Family Medicine; ATTEND Family Medicine
PROC: ENDOEBX (2018-01-26 14:30)